=== PATIENT | female | born 1945 | race Caucasian/White ===

== ENCOUNTER 2017-07-30 18:46 | Emergency (ER) | payer MEDICARE, SELFPAY ==
[2017-07-30 18:49] VITALS: BP 177/82; PULSE 66; RESP 14; TEMP 36.4; O2SAT 100; BMI 23.0
--- NOTE | 2017-07-30 18:58 | ED.GENADULT ---
HPI - General Adult <BARRIE Collado - Last Filed: 07/30/17 22:54> General Chief complaint: Hypertension Stated complaint: Thinks she had an aneurysm Time Seen by Provider: 07/30/17 18:57 History of Present Illness HPI narrative: Patient was seen by dentist and was informed that she had elevated blood pressure reading a few days ago. Patient denies having history of hypertension. Patient also reports of having headache for the last several days. As well she denies that it was sudden onset headache that she states she normally has a low grade headache she reports that the headache is a little bit worse than normal today. She denies any shortness of breath no chest pain. She denies any neurological deficits. She was able to ambulate into the emergency room. She reports headache to the top of her head. She denies any stressors. She does state that holding still helps relieve headache. Primary care provider wanted her to present to the emergency room today to rule out head bleed. She denies any other concerns or complaints. Related Data Home Medications Medication Instructions Recorded Confirmed lutein 20 mg PO Q DAY #0 04/15/16 07/30/17 ascorbic acid (vitamin C) [Vitamin 1 g PO QD-BID 07/30/17 07/30/17 C] cholecalciferol (vitamin D3) 2,000 unit PO DAILY 07/30/17 07/30/17 [Vitamin D3] levothyroxine [Synthroid] 62.5 mg PO SEE INSTRUCTIONS 07/30/17 07/30/17 magnesium 200 mg PO DAILY 07/30/17 07/30/17 omega 7-nig-dkn-fish oil [Fish Oil] 1,000 mg PO QD-BID 07/30/17 07/30/17 Allergies Allergy/AdvReac Type Severity Reaction Status Date / Time penicillin G [PENICILLIN G] Allergy Unknown FAMILY HX Verified 07/30/17 18:54 SEVERE REACTION, FATHER AND DAUGHTER Review of Systems <BARRIE Collado - Last Filed: 07/30/17 22:54> Constitutional Reports headache(s) Eyes Denies change in vision, Denies eye discharge, Denies irritation and Denies loss of vision ENT Ears, Nose, Mouth, and Throat: Reports headache(s) Cardiovascular Denies chest pain, Denies dyspnea and Reports other Respiratory Denies dyspnea Gastrointestinal Gastrointestinal: Denies abdominal pain, Denies change in bowel habits, Denies diarrhea, Denies nausea and Denies vomiting Genitourinary Denies hematuria, Denies flank pain, Denies urinary incontinence and Denies urinary urgency Integumentary/Breasts Denies pruritus, Denies erythema, Denies rash and Denies wounds Neurologic Reports headache(s) and Denies loss of vision Exam <BARRIE Collado - Last Filed: 07/30/17 22:54> Initial Vital Signs Initial Vital Signs: Vital Signs Temperature 97.5 F L 07/30/17 18:49 Pulse Rate 66 07/30/17 18:49 Respiratory Rate 14 07/30/17 18:49 Blood Pressure 177/82 H 07/30/17 18:49 Pulse Oximetry 100 07/30/17 18:49 Neuro General: alert, awake, oriented x3, gait normal, moves all extremities and CN's II-XI intact bilaterally Cranial Nerves: accommodation normal, tongue midline, hearing normal, able to rotate head bilaterally and able to elevate shoulders bilaterally Cognition: normal cognition Speech: speech normal Motor: strength 5/5 throughout Sensory Exam: no sensory deficits noted <Los Rajput MD - Last Filed: 07/31/17 03:30> Initial Vital Signs Initial Vital Signs: Vital Signs Temperature 97.5 F L 07/30/17 18:49 Pulse Rate 66 07/30/17 18:49 Respiratory Rate 14 07/30/17 18:49 Blood Pressure 177/82 H 07/30/17 18:49 Pulse Oximetry 100 07/30/17 18:49 Course <BARRIE Collado - Last Filed: 07/30/17 22:54> Orders Ordered: ED Orders 07/30/17 19:15 Complete Blood Count AUTO DIFF Stat Comprehensive Metabolic Panel Stat 07/30/17 19:22 CT angio head Stat Discontinued Medications Acetaminophen (Tylenol) 650 mg PO NOW ONE Stop: 07/30/17 19:11 Last Admin: 07/30/17 19:30 Dose: 650 mg Vital Signs - 8 hr 07/30/17 20:20 07/30/17 21:49 07/30/17 22:58 Pulse Rate 60 60 65 Respiratory Rate 14 17 15 Blood Pressure [Right Arm] 145/61 H 155/92 H 152/92 H Pulse Oximetry 99 100 100 <Los Rajput MD - Last Filed: 07/31/17 03:30> Orders Ordered: ED Orders 07/30/17 19:15 Complete Blood Count AUTO DIFF Stat Comprehensive Metabolic Panel Stat 07/30/17 19:22 CT angio head Stat Discontinued Medications Acetaminophen (Tylenol) 650 mg PO NOW ONE Stop: 07/30/17 19:11 Last Admin: 07/30/17 19:30 Dose: 650 mg Vital Signs - 8 hr 07/30/17 20:20 07/30/17 21:49 07/30/17 22:58 Pulse Rate 60 60 65 Respiratory Rate 14 17 15 Blood Pressure [Right Arm] 145/61 H 155/92 H 152/92 H Pulse Oximetry 99 100 100 Medical Decision Making <BARRIE Collado - Last Filed: 07/30/17 22:54> MDM Narrative Medical decision making narrative: CBC and Chem panel were obtained and were unremarkable. CTA of head was obtained and was negative for any acute findings. She is recommended to follow up with primary care provider for further evaluation and treatment of a possible hypertension. Use [id number] Tylenol or Motrin as needed for any discomfort or headache. Return emergency room for any worsening symptoms. Lab Data Result diagrams: 07/30/17 19:15 07/30/17 19:15 Lab Results 07/30/17 07/30/17 Range/Units 19:15 19:15 WBC 6.7 (4.5-11.0) X10^3/uL RBC 4.74 (4.0-5.2) X10^6/uL Hgb 14.3 (12.0-16.0) g/dL Hct 42.4 (36-46) % MCV 89.4 (80-100) fL MCH 30.2 (26-34) PG MCHC 33.8 (30-36) % RDW 14.0 (11.6-14.8) % Plt Count 170 (150-400) X10^3/uL Neut % (Auto) 50.7 (50-75) % Lymph % (Auto) 37.4 (25-40) % [place] % (Auto) 9.6 (3-14) % Eos % (Auto) 1.8 L (2-4) % Baso % (Auto) 0.5 (0-2) % Neut # (Auto) 3400 (9736-0713) /uL Sodium 141 (137-145) mmol/L Potassium 4.7 (3.4-5.1) mmol/L Chloride 103.0 (98-107) mmol/L Carbon Dioxide 30.0 (22-32) mmol/L BUN 29.0 H (7-17) mg/dL Creatinine 0.80 (0.52-1.04) mg/dL Estimated GFR > 60.0 (>60) mL/min BUN/Creatinine Ratio 36.3 H (6-22) Glucose 89 (80-110) mg/dL Calcium 9.6 (8.4-10.2) mg/dL Total Bilirubin 0.6 (0.2-1.3) mg/dL AST 47 H (14-36) IU/L ALT 36 (9-52) IU/L Alkaline Phosphatase 95 (38-126) U/L Total Protein 7.6 (6.3-8.2) g/dL Albumin 4.3 (3.5-5.0) g/dL Globulin 3.3 (1.7-4.1) g/dL Albumin/Globulin Ratio 1.3 (1.0-2.8) <Los Rajput MD - Last Filed: 07/31/17 03:30> MDM Narrative Medical decision making narrative: The PA/DRESSAGE JUDGE functioned independently for the care of this pt, I was available, but not asked to participate in care. I am unable to determine appropriateness of management without personally examining the pt. Lab Data Lab Results 07/30/17 07/30/17 Range/Units 19:15 19:15 WBC 6.7 (4.5-11.0) X10^3/uL RBC 4.74 (4.0-5.2) X10^6/uL Hgb 14.3 (12.0-16.0) g/dL Hct 42.4 (36-46) % MCV 89.4 (80-100) fL MCH 30.2 (26-34) PG MCHC 33.8 (30-36) % RDW 14.0 (11.6-14.8) % Plt Count 170 (150-400) X10^3/uL Neut % (Auto) 50.7 (50-75) % Lymph % (Auto) 37.4 (25-40) % [place] % (Auto) 9.6 (3-14) % Eos % (Auto) 1.8 L (2-4) % Baso % (Auto) 0.5 (0-2) % Neut # (Auto) 3400 (6899-5563) /uL Sodium 141 (137-145) mmol/L Potassium 4.7 (3.4-5.1) mmol/L Chloride 103.0 (98-107) mmol/L Carbon Dioxide 30.0 (22-32) mmol/L BUN 29.0 H (7-17) mg/dL Creatinine 0.80 (0.52-1.04) mg/dL Estimated GFR > 60.0 (>60) mL/min BUN/Creatinine Ratio 36.3 H (6-22) Glucose 89 (80-110) mg/dL Calcium 9.6 (8.4-10.2) mg/dL Total Bilirubin 0.6 (0.2-1.3) mg/dL AST 47 H (14-36) IU/L ALT 36 (9-52) IU/L Alkaline Phosphatase 95 (38-126) U/L Total Protein 7.6 (6.3-8.2) g/dL Albumin 4.3 (3.5-5.0) g/dL Globulin 3.3 (1.7-4.1) g/dL Albumin/Globulin Ratio 1.3 (1.0-2.8) Discharge Plan Departure Patient Disposition: Home, Self-Care Clinical Impression: Headache Discharge Date/Time: 07/30/17 23:04 Interventions: ED Discharge Assessment Last Done: 07/30/17 23:04 Activity Restrictions/Additional Instructions: Laboratory results were unremarkable. CT of the head was negative for any acute findings. Signs and symptoms presents as acute on chronic headache. Use [id number] Tylenol or Motrin as needed for any discomfort. Follow up with the primary care provider for further evaluation and treatment of possible hypertension. For any worsening symptoms return to the emergency room. Prescriptions: No Action lutein 20 MG tablet 20 mg PO Q DAY Qty: 0 RF: 0 levothyroxine [Synthroid] 125 MCG tablet 62.5 mg PO SEE INSTRUCTIONS RF: 0 ascorbic acid (vitamin C) [Vitamin C] 1,000 mg Tablet 1 g PO QD-BID RF: 0 magnesium 200 mg Tablet 200 mg PO DAILY RF: 0 cholecalciferol (vitamin D3) [Vitamin D3] 2,000 unit Capsule 2,000 unit PO DAILY RF: 0 omega 5-gpu-pgo-fish oil [Fish Oil] 1,000 mg (120 mg-180 mg) Capsule 1,000 mg PO QD-BID RF: 0
--- NOTE | 2017-07-30 19:20 | ED_ITS ---
HPI - General Adult <BARRIE Collado - Last Filed: 07/30/17 22:54> General Chief complaint: Hypertension Stated complaint: Thinks she had an aneurysm Time Seen by Provider: 07/30/17 18:57 History of Present Illness HPI narrative: Patient was seen by dentist and was informed that she had elevated blood pressure reading a few days ago. Patient denies having history of hypertension. Patient also reports of having headache for the last several days. As well she denies that it was sudden onset headache that she states she normally has a low grade headache she reports that the headache is a little bit worse than normal today. She denies any shortness of breath no chest pain. She denies any neurological deficits. She was able to ambulate into the emergency room. She reports headache to the top of her head. She denies any stressors. She does state that holding still helps relieve headache. Primary care provider wanted her to present to the emergency room today to rule out head bleed. She denies any other concerns or complaints. Related Data Home Medications Medication Instructions Recorded Confirmed lutein 20 mg PO Q DAY #0 04/15/16 07/30/17 ascorbic acid (vitamin C) [Vitamin 1 g PO QD-BID 07/30/17 07/30/17 C] cholecalciferol (vitamin D3) 2,000 unit PO DAILY 07/30/17 07/30/17 [Vitamin D3] levothyroxine [Synthroid] 62.5 mg PO SEE INSTRUCTIONS 07/30/17 07/30/17 magnesium 200 mg PO DAILY 07/30/17 07/30/17 omega 8-nac-rjn-fish oil [Fish Oil] 1,000 mg PO QD-BID 07/30/17 07/30/17 Allergies Allergy/AdvReac Type Severity Reaction Status Date / Time penicillin G [PENICILLIN G] Allergy Unknown FAMILY HX Verified 07/30/17 18:54 SEVERE REACTION, FATHER AND DAUGHTER Review of Systems <BARRIE Collado - Last Filed: 07/30/17 22:54> Constitutional Reports headache(s) Eyes Denies change in vision, Denies eye discharge, Denies irritation and Denies loss of vision ENT Ears, Nose, Mouth, and Throat: Reports headache(s) Cardiovascular Denies chest pain, Denies dyspnea and Reports other Respiratory Denies dyspnea Gastrointestinal Gastrointestinal: Denies abdominal pain, Denies change in bowel habits, Denies diarrhea, Denies nausea and Denies vomiting Genitourinary Denies hematuria, Denies flank pain, Denies urinary incontinence and Denies urinary urgency Integumentary/Breasts Denies pruritus, Denies erythema, Denies rash and Denies wounds Neurologic Reports headache(s) and Denies loss of vision Exam <BARRIE Collado - Last Filed: 07/30/17 22:54> Initial Vital Signs Initial Vital Signs: Vital Signs Temperature 97.5 F L 07/30/17 18:49 Pulse Rate 66 07/30/17 18:49 Respiratory Rate 14 07/30/17 18:49 Blood Pressure 177/82 H 07/30/17 18:49 Pulse Oximetry 100 07/30/17 18:49 Neuro General: alert, awake, oriented x3, gait normal, moves all extremities and CN's II-XI intact bilaterally Cranial Nerves: accommodation normal, tongue midline, hearing normal, able to rotate head bilaterally and able to elevate shoulders bilaterally Cognition: normal cognition Speech: speech normal Motor: strength 5/5 throughout Sensory Exam: no sensory deficits noted <Los Rajput MD - Last Filed: 07/31/17 03:30> Initial Vital Signs Initial Vital Signs: Vital Signs Temperature 97.5 F L 07/30/17 18:49 Pulse Rate 66 07/30/17 18:49 Respiratory Rate 14 07/30/17 18:49 Blood Pressure 177/82 H 07/30/17 18:49 Pulse Oximetry 100 07/30/17 18:49 Course <BARRIE Collado - Last Filed: 07/30/17 22:54> Orders Ordered: ED Orders 07/30/17 19:15 Complete Blood Count AUTO DIFF Stat Comprehensive Metabolic Panel Stat 07/30/17 19:22 CT angio head Stat Discontinued Medications Acetaminophen (Tylenol) 650 mg PO NOW ONE Stop: 07/30/17 19:11 Last Admin: 07/30/17 19:30 Dose: 650 mg Vital Signs - 8 hr 07/30/17 20:20 07/30/17 21:49 07/30/17 22:58 Pulse Rate 60 60 65 Respiratory Rate 14 17 15 Blood Pressure [Right Arm] 145/61 H 155/92 H 152/92 H Pulse Oximetry 99 100 100 <Los Rajput MD - Last Filed: 07/31/17 03:30> Orders Ordered: ED Orders 07/30/17 19:15 Complete Blood Count AUTO DIFF Stat Comprehensive Metabolic Panel Stat 07/30/17 19:22 CT angio head Stat Discontinued Medications Acetaminophen (Tylenol) 650 mg PO NOW ONE Stop: 07/30/17 19:11 Last Admin: 07/30/17 19:30 Dose: 650 mg Vital Signs - 8 hr 07/30/17 20:20 07/30/17 21:49 07/30/17 22:58 Pulse Rate 60 60 65 Respiratory Rate 14 17 15 Blood Pressure [Right Arm] 145/61 H 155/92 H 152/92 H Pulse Oximetry 99 100 100 Medical Decision Making <BARRIE Collado - Last Filed: 07/30/17 22:54> MDM Narrative Medical decision making narrative: CBC and Chem panel were obtained and were unremarkable. CTA of head was obtained and was negative for any acute findings. She is recommended to follow up with primary care provider for further evaluation and treatment of a possible hypertension. Use [id number] Tylenol or Motrin as needed for any discomfort or headache. Return emergency room for any worsening symptoms. Lab Data Result diagrams: 07/30/17 19:15 07/30/17 19:15 Lab Results 07/30/17 07/30/17 Range/Units 19:15 19:15 WBC 6.7 (4.5-11.0) X10^3/uL RBC 4.74 (4.0-5.2) X10^6/uL Hgb 14.3 (12.0-16.0) g/dL Hct 42.4 (36-46) % MCV 89.4 (80-100) fL MCH 30.2 (26-34) PG MCHC 33.8 (30-36) % RDW 14.0 (11.6-14.8) % Plt Count 170 (150-400) X10^3/uL Neut % (Auto) 50.7 (50-75) % Lymph % (Auto) 37.4 (25-40) % [place] % (Auto) 9.6 (3-14) % Eos % (Auto) 1.8 L (2-4) % Baso % (Auto) 0.5 (0-2) % Neut # (Auto) 3400 (5769-6238) /uL Sodium 141 (137-145) mmol/L Potassium 4.7 (3.4-5.1) mmol/L Chloride 103.0 (98-107) mmol/L Carbon Dioxide 30.0 (22-32) mmol/L BUN 29.0 H (7-17) mg/dL Creatinine 0.80 (0.52-1.04) mg/dL Estimated GFR > 60.0 (>60) mL/min BUN/Creatinine Ratio 36.3 H (6-22) Glucose 89 (80-110) mg/dL Calcium 9.6 (8.4-10.2) mg/dL Total Bilirubin 0.6 (0.2-1.3) mg/dL AST 47 H (14-36) IU/L ALT 36 (9-52) IU/L Alkaline Phosphatase 95 (38-126) U/L Total Protein 7.6 (6.3-8.2) g/dL Albumin 4.3 (3.5-5.0) g/dL Globulin 3.3 (1.7-4.1) g/dL Albumin/Globulin Ratio 1.3 (1.0-2.8) <Los Rajput MD - Last Filed: 07/31/17 03:30> MDM Narrative Medical decision making narrative: The PA/TOLL GATE TENDER functioned independently for the care of this pt, I was available, but not asked to participate in care. I am unable to determine appropriateness of management without personally examining the pt. Lab Data Lab Results 07/30/17 07/30/17 Range/Units 19:15 19:15 WBC 6.7 (4.5-11.0) X10^3/uL RBC 4.74 (4.0-5.2) X10^6/uL Hgb 14.3 (12.0-16.0) g/dL Hct 42.4 (36-46) % MCV 89.4 (80-100) fL MCH 30.2 (26-34) PG MCHC 33.8 (30-36) % RDW 14.0 (11.6-14.8) % Plt Count 170 (150-400) X10^3/uL Neut % (Auto) 50.7 (50-75) % Lymph % (Auto) 37.4 (25-40) % [place] % (Auto) 9.6 (3-14) % Eos % (Auto) 1.8 L (2-4) % Baso % (Auto) 0.5 (0-2) % Neut # (Auto) 3400 (9635-2747) /uL Sodium 141 (137-145) mmol/L Potassium 4.7 (3.4-5.1) mmol/L Chloride 103.0 (98-107) mmol/L Carbon Dioxide 30.0 (22-32) mmol/L BUN 29.0 H (7-17) mg/dL Creatinine 0.80 (0.52-1.04) mg/dL Estimated GFR > 60.0 (>60) mL/min BUN/Creatinine Ratio 36.3 H (6-22) Glucose 89 (80-110) mg/dL Calcium 9.6 (8.4-10.2) mg/dL Total Bilirubin 0.6 (0.2-1.3) mg/dL AST 47 H (14-36) IU/L ALT 36 (9-52) IU/L Alkaline Phosphatase 95 (38-126) U/L Total Protein 7.6 (6.3-8.2) g/dL Albumin 4.3 (3.5-5.0) g/dL Globulin 3.3 (1.7-4.1) g/dL Albumin/Globulin Ratio 1.3 (1.0-2.8) Discharge Plan Departure Patient Disposition: Home, Self-Care Clinical Impression: Headache Discharge Date/Time: 07/30/17 23:04 Interventions: ED Discharge Assessment Last Done: 07/30/17 23:04 Activity Restrictions/Additional Instructions: Laboratory results were unremarkable. CT of the head was negative for any acute findings. Signs and symptoms presents as acute on chronic headache. Use dyxl-uau-hzuqlej Tylenol or Motrin as needed for any discomfort. Follow up with the primary care provider for further evaluation and treatment of possible hypertension. For any worsening symptoms return to the emergency room. Prescriptions: No Action lutein 20 MG tablet 20 mg PO Q DAY Qty: 0 RF: 0 levothyroxine [Synthroid] 125 MCG tablet 62.5 mg PO SEE INSTRUCTIONS RF: 0 ascorbic acid (vitamin C) [Vitamin C] 1,000 mg Tablet 1 g PO QD-BID RF: 0 magnesium 200 mg Tablet 200 mg PO DAILY RF: 0 cholecalciferol (vitamin D3) [Vitamin D3] 2,000 unit Capsule 2,000 unit PO DAILY RF: 0 omega 2-spx-klh-fish oil [Fish Oil] 1,000 mg (120 mg-180 mg) Capsule 1,000 mg PO QD-BID RF: 0
--- NOTE | 2017-07-30 19:22 | DI.CT.S_ITS ---
PROCEDURE: CT ANGIO HEAD INDICATIONS: headache elevated bp, hx of anuerism TECHNIQUE: Precontrast 4.5 mm thick angled axial sections acquired from the foramen magnum to the vertex. After the administration of intravenous contrast, 1 mm thick sections acquired through the [place]. Postcontrast 4.5 mm thick sections then re-acquired from the foramen magnum to the vertex. 10 mm thick bcgumce-gtbkdqlsw-iwzdeductl (MIP) reformats were acquired of the central intracranial vasculature. For radiation dose reduction, the following was used: automated exposure control, adjustment of mA and/or kV according to patient size. COMPARISON: None. FINDINGS: Image quality: Excellent. Anterior circulation: Postsurgical changes related to aneurysm clipping. The visualized intracranial internal carotid arteries are normal in size and flow. The flow within the paired anterior cerebral arteries is normal and symmetric. The flow within the middle cerebral arteries is normal and symmetric. The anterior communicating artery is seen. No aneurysms are seen. Posterior circulation: Dominant left vertebral artery . Distal right vertebral artery not seen. Normal appearing basilar artery. Flow within the posterior cerebral arteries is normal and symmetric. No aneurysms are seen. CSF spaces: Ventricles are normal in size and shape. Basal cisterns are patent. No extra-axial fluid collections. Brain: No midline shift. There is chronic age-related global volume loss. There is superimposed left frontal encephalomalacia, chronic. Suprasellar aneurysm clip is noted. No intracranial bleeds or masses. [place]-white matter interface appears intact. Skull and face: Calvarium and facial bones appear intact, without suspicious lesions. No frontal postsurgical craniotomy changes Sinuses: Visualized sinuses and mastoids are clear. IMPRESSION: Status post suprasellar aneurysm clip placement. No recurrent aneurysm, or occlusion. Chronic left frontal encephalomalacia. No acute intracranial abnormality. Dictated by: Rishi Cabrera M.D. on 07/31/2017 at 7:17 Approved by: Rishi Cabrera M.D. on 07/31/2017 at 9:08
[2017-07-30 19:27] LABS: Add Manual Diff / Slide Review NO; Basophils Percent Auto 0.5 % (0-2); Eosinophils Percent Auto 1.8 % (2-4); Hematocrit 42.4 % (36-46); Hemoglobin 14.3 g/dL (12.0-16.0); Lymphocytes Percent Auto 37.4 % (25-40); Mean Corpuscular HGB Conc 33.8 % (30-36); Mean Corpuscular Hemoglobin 30.2 PG (26-34); Mean Corpuscular Volume 89.4 fL (80-100); Monocytes Percent Auto 9.6 % (3-14); Neutrophils Absolute Auto 3400 /uL (3000-5900); Neutrophils Percent Auto 50.7 % (50-75); Platelet Count 170 X10^3/uL (150-400); Red Blood Cell Count 4.74 X10^6/uL (4.0-5.2); White Blood Cell Count 6.7 X10^3/uL (4.5-11.0)
[2017-07-30] MEDS: ACETAMINOPHEN 325 MG TABLET 650 MG PO (19:30)
[2017-07-30 20:15] LABS: Alanine Aminotransferase 36 IU/L (9-52); Albumin 4.3 g/dL (3.5-5.0); Albumin Globulin Ratio 1.3 (1.0-2.8); Alkaline Phosphatase 95 U/L (38-126); Aspartate Aminotransferase 47 IU/L (14-36); BUN Creatinine Ratio 36.3 (6-22); Bilirubin Total 0.6 mg/dL (0.2-1.3); Calcium 9.6 mg/dL (8.4-10.2); Estimated Glomerular Filt Rate > 60.0 mL/min (>60); Globulin 3.3 g/dL (1.7-4.1); Glucose 89 mg/dL (80-110); Potassium 4.7 mmol/L (3.4-5.1); Sodium 141 mmol/L (137-145); Total Protein 7.6 g/dL (6.3-8.2)
[2017-07-30 20:16] LABS: HEMOLYSIS 61 (0-50)
[2017-07-30 20:20] VITALS: BP 145/61; PULSE 60; RESP 14; O2SAT 99
[2017-07-30 21:49] VITALS: BP 155/92; PULSE 60; RESP 17; O2SAT 100
[2017-07-30 22:58] VITALS: BP 152/92; PULSE 65; RESP 15; O2SAT 100
== END 2017-07-30 23:04 | disposition home or self-care (01) ==
PROVIDERS: Emergency Provider Nurse Practitioner Family; PCP Family Medicine
DX: R51 Headache (principal)
CPT/HCPCS: 36591; 70496; 80053; 85025; 99283; 99284; Q9967

== ENCOUNTER 2017-07-30 19:11 | Emergency (ER) | payer MEDICARE, SELFPAY ==
--- NOTE | 2017-07-30 14:52 | PC.NURSE ---
Dr mancia phoned report, pt presented with headache, and also has elevated bp of 180/100. Hx of brain anyresum with clipping. [place] [id number]
== END 2017-07-30 19:15 | disposition home or self-care (01) ==
LOC: ED 19:14
DX: R51 Headache (principal)

== ENCOUNTER → 2023-08-20 08:03 | Outpatient (CLI) | payer MEDICARE, SELFPAY ==
--- NOTE | 2023-08-20 08:06 | DI.MRI.S_ITS ---
PROCEDURE: MR LUMBAR SPINE WO CON INDICATIONS: Spinal stenosis, lumbar region with neurogenic cla TECHNIQUE: Noncontrast sagittal T1 spin echo and T2 fast echo, sagittal STIR, and T2 fast spin echo through the lumbar spine. In cases with scoliosis, additional coronal T2 fast spin echo may be performed. COMPARISON: None. FINDINGS: Image quality: Excellent. Alignment and Curvature: There is grade I L4-5 anterolisthesis. There is otherwise normal bony alignment. Bone Marrow: Marrow is of normal overall signal. An intraosseous hemangioma is present at L1 and L4. No acute vertebral body compression fractures. A chronic appearing compression deformity is present at the left superior L2 endplate. Spinal Cord: Conus medullaris terminates at the L1 level. Visualized cord demonstrates normal signal and size. Paraspinous Soft Tissues: No paravertebral masses. A T2 hyperintense \, probable cyst is present in the lower pole of the right kidney which is incompletely characterized. T12-L1: Mild disc bulge. No canal stenosis. Mild right foraminal stenosis. No left foraminal stenosis L1-L2: Mild disc desiccation and height loss. Left superior L2 endplate compression deformity. Broad-based disc bulge. Mild facet ligamentum flavum hypertrophy. No canal stenosis. Mild bilateral foraminal stenosis. L2-L3: Moderate disc desiccation and height loss. Superior L3 endplate Schmorl's node. Broad-based disc bulge. Moderate facet ligamentum flavum hypertrophy. Mild canal stenosis. Moderate right and mild left foraminal stenosis. L3-L4: Moderate disc desiccation and height loss. Severe facet and ligamentum flavum hypertrophy. No canal stenosis. Moderate bilateral foraminal stenosis. L4-L5: Trace anterolisthesis. Moderate disc desiccation and height loss. Moderate facet and ligamentum flavum hypertrophy. No canal stenosis. Mild bilateral foraminal stenosis. L5-S1: Mild disc desiccation and height loss. No canal stenosis. Mild facet sclerosis. No foraminal stenosis. IMPRESSION: 1. Compression deformity at the superior left L2 endplate. No edema is associated with this finding suggesting a chronic process. 2. Multilevel disc desiccation and height loss with broad-based disc bulges and facet and ligamentum flavum hypertrophy and resultant mild canal stenosis at L2-3. No other canal stenosis of the lumbar spine. 3. Moderate right foraminal stenosis at L2-3 and moderate bilateral foraminal stenosis at L3-4. Dictated by: Dawna Dee M.D. on 08/20/2023 at 10:36 Approved by: Dawna Dee M.D. on 08/20/2023 at 10:44
== END ==
PROVIDERS: PCP Family Medicine; Referring Provider Orthopaedic Surgery Orthopaedic Surgery of the Spine; Visit Provider Orthopaedic Surgery Orthopaedic Surgery of the Spine
DX: M48.062 Spinal stenosis, lumbar region with neurogenic claudication (principal); M47.816 Spondylosis without myelopathy or radiculopathy, lumbar region; M47.26 Other spondylosis with radiculopathy, lumbar region; M43.8X6 Other specified deforming dorsopathies, lumbar region
CPT/HCPCS: 72148

== ENCOUNTER → 2023-09-10 14:39 | Outpatient (CLI) | payer MEDICARE, SELFPAY ==
--- NOTE | 2023-09-10 14:41 | DI.CT.S_ITS ---
PROCEDURE: CT LUMBAR SPINE WO CON INDICATIONS: SPINAL STENOSIS,LUMBAR REGION W NEUROGENIC CLAUDIC TECHNIQUE: Noncontrast 3 mm thick sections acquired from the T12 level to the sacrum. Sagittal and coronal reformats were constructed. For radiation dose reduction, the following was used: automated exposure control. COMPARISON: [facility], MR, MR LUMBAR SPINE WO CON, 08/20/2023, 8:42. FINDINGS: Image quality: Excellent. Bones: There is no visualized fracture or dislocation. No suspicious osseous lesions. Trace anterolisthesis is present at L5-S1. Scattered small anterior osteophytes are present most severe at L2 and L3. Multilevel disc bulges are present throughout the lumbar spine. Mild spinal stenosis is present at L2-3. Multilevel foraminal narrowing is present mild bilateral L1-2, moderate right mild left L2-3, moderate bilateral L3-4, mild bilateral L4-L5. Facet and ligamentum flavum hypertrophy are present. Soft tissues: No retroperitoneal masses or hematomas. Visualized aorta is normal in caliber. IMPRESSION: Multilevel disc bulges. Mild spinal stenosis most notable at L2-3 secondary to disc bulge with contributing effect of facet/ligamentum flavum arthropathy. Multilevel foraminal narrowing is present most prominent at right L2-3 secondary to facet arthropathy. Dictated by: Kerri Farris M.D. on 09/10/2023 at 16:49 Approved by: Kerri Farris M.D. on 09/10/2023 at 16:51
== END ==
PROVIDERS: PCP Family Medicine; Referring Provider Orthopaedic Surgery Orthopaedic Surgery of the Spine; Visit Provider Orthopaedic Surgery Orthopaedic Surgery of the Spine
DX: M48.062 Spinal stenosis, lumbar region with neurogenic claudication (principal); M51.36 Other intervertebral disc degeneration, lumbar region
CPT/HCPCS: 72131

== ENCOUNTER 2023-09-21 10:23 | Inpatient (IN) | payer MEDICARE, SELFPAY ==
[2023-09-15 13:52] VITALS: BMI 23.6
[2023-09-21] VITALS (17 sets, daily range): BP systolic 84–152; BP diastolic 44–86; PULSE 60–80; RESP 11–18; TEMP 36.1–36.8; O2SAT 93–100; BMI 23.6
--- NOTE | 2023-09-21 | DI.RAD.S_ITS ---
PROCEDURE: XR LUMBAR SPINE 2-3V INDICATIONS: L3-4 L4-5 TLIF TECHNIQUE: 3 intraoperative fluoroscopic views of the lumbar spine were acquired. COMPARISON: None. FINDINGS: Intraoperative fluoroscopic images of lower lumbar spine shows posterior fusion of L3-4 and L4-5 levels with intervertebral spacer placement. IMPRESSION: Fluoro guidance was provided intraoperatively for posterior fusion at L3-4 and L4-5 levels. Dictated by: Patrick Cuellar M.D. on 09/21/2023 at 16:17 Approved by: Patrick Cuellar M.D. on 09/21/2023 at 16:21
[2023-09-21] MEDS: LACTATED RINGERS 1,000 ML 42 ML IV ×2 (11:28→13:31)
--- NOTE | 2023-09-21 11:36 | PM.PREOP ---
Pre-operative Note Interval Note History & Physical reviewed/Exam performed by Physician: Yes Changes to H&P: No
[2023-09-21] MEDS: FAMOTIDINE 20 MG/2 ML VIAL IV (11:48)
[2023-09-21] MEDS: PREGABALIN 75 MG CAPSULE PO (11:48)
[2023-09-21] MEDS: ACETAMINOPHEN 325 MG TABLET 975 MG PO (11:48)
[2023-09-21] MEDS: CEFAZOLIN 2 GM/100 ML PREMIX 100 ML IV ×2 (12:15→20:59)
--- NOTE | 2023-09-21 12:34 | SUR.OPER ---
Prone on spine table, head in foam head support, padded chest and pelvic supports, gel pad at knees, lower legs supported by pillows; nipples, genitalia and toes free of pressure, arms secured on foam padded arm boards at <90 degrees abduction. Tape over blanket at thigh secured to table.
[2023-09-21] MEDS: BUPIVACAINE LIPOSOME 266 MG/20 ML VIAL INJ (13:05)
[2023-09-21] MEDS: BUPIVACAINE 0.25% (PF) 60 ML, EPINEPHrine 0.15 MG INJ (13:05)
--- NOTE | 2023-09-21 14:58 | P.OP_ITS ---
Operative Date/Time/Diagnoses Date of procedure: 09/21/23 Time of procedure: 12:30 Pre-op diagnosis: 1. 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 L4-5 spondylolisthesis 3. Lumbar foramen stenosis Post-op diagnosis: same Procedure & Clinicians Procedure: 1. L3-4, L4-5 Postero-lateral and posterior interbody fusion 2. L3-4, L4-5 interbody cage placement. 3.L3-4, L4-5 decompressive laminectomy with bilateral facetecomies 4. L3-4, L4-5 Posterior segmental instrumentation 5. [place] of bone marrow from iliac crest 6. Utilization of microsurgical technique and operating microscope 7. Utilization of robotic assisted navigation Same procedure as scheduled: Yes Indications: Patient has been having chronic back pain and worsening lumbar radiculopathy. Patient has lumbar spondylolisthesis and foraminal stenosis correlating with her symptoms. Patient failed multiple conservative management with worsening pain weakness and numbness in her lower extremity. Patient has been having difficulty performing activity of daily living. After discussing risks benefits of treatment options, patient elected proceed with surgery. Surgeon: Dayron Ford Histologist Technologist: Sulema Graf Click Yes if Unassisted: No Anesthesia Type: General Operative Notes Closure Type: primary Specimen(s): none sent Prosthetic devices, grafts, tissues, transplants, or devices: Globus CREO MIS Screws, Rise cages Applied: catheter Estimated Blood Loss (mL): 150 Blood products transfused: none Procedure in detail: Patient was seen in the preoperative area. Risks and benefits of the surgery was discussed with the patient. Informed consent was obtained from the patient and placed in the chart. Surgical site was marked. Patient was taken to the operative room. General anesthesia was administered. Prophylactic antibiotic was given to the patient less than 30 min before the incision was made. Patient was placed into a prone position on the Ryan table. Patient's back was then prepped and draped in the sterile fashion. Time-out was performed at this time. After patient was prepped and draped, patient's PSIS was palpated and marked bilaterally. Small 1 cm incision was made over the PSIS for placement of the reference probes. Two trocar was placed into the PSIS 1 on each side. The reference probe was attached to the trocar of the reference apparatus. At this time the C-arm imaging was used to confirm AP and lateral of L3, L4-L5 vertebrae and merged the C-arm imaging using the [employer] robotic navigation system with the CT of the lumbar spine. After successful merging was completed and confirmed, skin marker was used to soledad out the skin incision using the [employer] robotic arm. Bilateral incision was made at this time. Pre templated trajectory was used and guided using the [employer] robotic navigation system for bilateral L3 L4, L5 pedicle screw placement. This was done by using the robotic arm to guide the high-speed bur to make a cortical entry point. Next a drill was placed also using the robotic arm and guided using the navigation system drilling partially through bilateral L3, L4, L5 pedicles. Next L3, L4, L5 pedicle screws it was pre templated and measured was placed onto the power test car driver and inserted into the pedicles bilaterally. After all 6 screws were placed C-arm imaging was taken of both AP and lateral to confirm the placement. Excellent placement of the screws were confirmed and a matched precisely with the pre planned screw placement using the navigation system. MARs retractor was inserted using [employer] guidence. Globus MARS retractors was placed inside the incision and docked onto the L3, L4 lamina. Using microsurgical technique and operating microscope, a L3, L4 laminectomy and L3-4, L4-5 facetectomy was performed using a [place] rongeur. The laminectomy and facetectomy was performed in order to decompress patient's cauda equina as well as the nerve roots exiting at the L3-4, L4-5 level. Patient was found have severe lateral recess and neural foramen stenosis which was fully decompressed after the laminectomy facetectomy. More than 75% of the facets were removed during the process of decompression rendering L3-4, L4-5 level grossly unstable and required a fusion procedure at the same time. The disc space at L3-4, L4-5 was identified, and a total diskectomy was performed at L3-4, L4-5 level. The endplates were decorticated using a rasp and shaver. The total diskectomy and decortication was performed at L3-4, L4-5 level in order to to accomplish a L3- 4, L4-5 fusion. The local bone from the laminectomy and facetectomy was saved for local bone grafting. After the total diskectomy and decortication was completed, Viacel bone graft material was combined with local bone that was harvested earlier. At this time, a separate skin is incision was made over the iliac crest. A Jamshidi needle was inserted into the iliac crest through a separate skin incision. 5 cc of bone marrow aspiration was obtained through the separate skin incision using a Jamshidi needle from the iliac crest. The bone marrow aspiration was combined with local bone and the [employer] bone grafting material. The bone grafting material was placed into the L3-4, L4-5 interbody space along with expandable cages. One cage each was inserted into the L3-4 L4-5 interbody space along with bone graft material. The cage was expanded to its maximum height using the torque limiting screwdriver. The disc preparation as well as the cage insertion were also performed under navigation guidance. After the cage was placed, AP and lateral C-arm imaging was taken to confirm placement of the cage and excellent position was confirmed. Globus MARS retractor was inserted and docked onto the L3-4, L4-5 posterolateral gutter on the right side. Using the power drill, posterior-lateral decortication was performed at L3-4, L4-5 level until bleeding cortical bone was identified. The remaining bone grafting material was placed into the L3-4, L4-5 posterior lateral gutter he order to accomplish posterolateral fusion at the L3- 4, L4-5 level. At this time the tulips were attached to the L3, L4-L5 pedicle screw shanks. After measuring the length of the rods, they were inserted into the tulips of the pedicle screws and locked in place using locking caps and torque limiting screwdriver bilaterally. Total 6 caps and 2 titanium rods was used in order to complete the posterior instrumentation construct. Patient's spondylolisthesis at L4-5 level was reduced using the locking caps and a threaded locking mechanism. After all the hardware was placed, and confirmed with AP and lateral C-arm imaging, the wound was then irrigated with sterile normal saline and packed with Ray-Lucien gauze for 3 min to accomplish hemostasis. After the gauze was removed the deep fascia was closed with #1 Vicryl suture. The subcutaneous layer was closed with 2-0 Vicryl. The skin was closed with skin lisa. Patient tolerated the procedure well. There were no complications. Neuro monitoring system was used to monitor patient's neurologic status throughout entire procedure. There was no disturbance of the neural monitoring signals throughout the case. The Operation could not have been safely performed without compromising the technical result or length of the procedure, without the assistance of a skilled rn surgical pcu. The rn surgical pcu was medically necessary for proper positioning, retraction and manipulation of instruments, proper exposure, surgical preparation, and manipulation of tissue. Complications: none Post-operative Condition: stable Disposition: PACU Plan for aftercare: Admit to inpatient hospital
[2023-09-21] MEDS: LACTATED RINGERS 1,000 ML 125 ML IV (16:25)
[2023-09-21] MEDS: lisinopriL 5 MG TABLET PO (17:46)
[2023-09-21] MEDS: ACETAMINOPHEN 325 MG TABLET 650 MG PO (18:50)
[2023-09-21] MEDS: diphenhydrAMINE 50 MG/ML VIAL 25 MG IV (18:51)
[2023-09-21] MEDS: ASCORBIC ACID 500 MG TABLET 1000 MG PO (21:00)
[2023-09-21] MEDS: GABAPENTIN 300 MG CAPSULE PO (21:00)
[2023-09-21] MEDS: FISH OIL 1,000 MG CAPSULE 1000 MG PO (21:00)
[2023-09-21] MEDS: SENNOSIDES 8.6 MG TABLET 17.2 MG PO (21:00)
[2023-09-21] MEDS: DOCUSATE 100 MG CAPSULE PO (21:00)
[2023-09-22] VITALS: BP 106/53; PULSE 60; RESP 16; TEMP 36.2; O2SAT 95
[2023-09-22] MEDS: ACETAMINOPHEN 325 MG TABLET 650 MG PO ×4 (01:00→20:51)
[2023-09-22] MEDS: LACTATED RINGERS 1,000 ML 125 ML IV (01:05)
[2023-09-22 04:00] VITALS: BP 114/62; PULSE 64; RESP 16; TEMP 36.4; O2SAT 95
[2023-09-22] MEDS: HYDROMORPHONE 0.5 MG INJ IV ×2 (04:05→22:16)
[2023-09-22 04:31] LABS: Hematocrit 34.9 % (36-46); Hemoglobin 11.8 g/dL (12.0-16.0)
[2023-09-22] MEDS: LEVOTHYROXINE 125 MCG TABLET 62.5 MCG PO (06:36)
--- NOTE | 2023-09-22 07:32 | PC.NURSE ---
At about 0525 patient repositioned and accidentally pulled out IV. This RN attempted to start new IV x 3 unsuccessfully. Patient is a difficult stick. service parts coordinator notified, no other RN on unit able to start IV, request made to ER if anyone could try to start IV. Response from ER was maybe at 0700 someone could come up with US. Second dose of Cefazolin is hanging and still needs to be infused. Day shift RN notified of above and will try to insert IV.
--- NOTE | 2023-09-22 07:41 | PM.PNPO.1 ---
Subjective Subjective Date Patient Seen: 09/22/23 Time Patient Seen: 07:42 Interval history: Pain is moderate to severe. Denies fever or chills. Exam Vital Signs (past 8 hours): - 09/22/23 00:00 09/22/23 04:00 Temperature 97.2 F L 97.6 F Pulse Rate 60 64 Respiratory Rate 16 16 Blood Pressure 106/53 L 114/62 Pulse Oximetry 95 95 Oxygen Flow Rate 0 0 Oxygen Delivery Method Room Air Oxygen Flow Rate 0 Narrative Exam Narrative: 78-year-old female resting comfortably in bed in no apparent distress. Neurovascular status is intact bilateral lower extremities. Const General: cooperative and comfortable Nutritional Appearance: average body habitus Orientation: alert Resp Effort & Inspection: normal respiratory effort and able to speak in complete sentences Objective Labs 09/22/23 03:50 Labs: Laboratory Results - last 24 hr 09/22/23 03:50 Hgb 11.8 L Hct 34.9 L PFSH Medical History HTN (hypertension) Surgical History Hx of bilateral cataract extraction Hx of parathyroidectomy (02/2009) [place] teeth removed History of endometrial ablation Hx of colonoscopy History of hymenectomy History of cerebral aneurysm repair (2008) Family History Father Cancer Grandmother Cancer Mother Hypertension High cholesterol Social History household members: spouse Smoking Status: Never smoker alcohol intake: current Assessment & Plan Post-op Postoperative Procedures: Procedures Operation Date: 09/21/23 11:45 Actual Procedure Side Surgeon p L3-4, L4-5 TLIF with posterior instrumentation-Robot Dayron Ford MD Postoperative day: 1 Postoperative status: doing well and marginal pain control Postoperative plan: routine post-op care Postoperative plan narrative: Multimodal pain management Mobilize with physical therapy, limit bending, twisting, lifting Disposition likely home today or tomorrow Quality VTE Deep Vein Thrombosis/Pulmonary Embolism Present on Admission: No
[2023-09-22] MEDS: CEFAZOLIN 2 GM/100 ML PREMIX 100 ML IV (08:01)
[2023-09-22] MEDS: FISH OIL 1,000 MG CAPSULE 1000 MG PO ×2 (08:47→20:52)
[2023-09-22] MEDS: MAGNESIUM OXIDE 400 MG TABLET PO (08:47)
[2023-09-22] MEDS: GABAPENTIN 300 MG CAPSULE PO ×2 (08:47→20:51)
[2023-09-22] MEDS: ASCORBIC ACID 500 MG TABLET 1000 MG PO ×2 (08:47→20:52)
[2023-09-22] MEDS: CHOLECALCIFEROL (VITAMIN D3) 1,000 UNIT TABLET 2000 UNIT PO (08:47)
[2023-09-22] MEDS: DOCUSATE 100 MG CAPSULE PO ×2 (08:48→20:52)
[2023-09-22] MEDS: hydroCHLOROthiazide 25 MG TABLET 12.5 MG PO (08:48)
--- NOTE | 2023-09-22 09:05 | OT.IP.EVAL ---
Current Diagnoses Spondylolisthesis, lumbar region (09/21/23) Spinal stenosis, lumbar region with neurogenic claudication (09/21/23) Surgery Performed Operation Date: 09/21/23 11:45 Actual Procedures p L3-4, L4-5 TLIF with posterior instrumentation-Robot - Dayron Ford MD Past Medical History (Last Reviewed 09/22/23 @ 07:42 by Dameon Brower PA-C) HTN (hypertension) Surgical History (Last Reviewed 09/22/23 @ 07:42 by Dameon Brower PA-C) History of cerebral aneurysm repair (2008) History of endometrial ablation History of hymenectomy Hx of bilateral cataract extraction Hx of colonoscopy Hx of parathyroidectomy (02/2009) [place] teeth removed Occupational Therapy Inpatient Evaluation/Re-Eval M1 PT/OT-IP Prior Functional Status Start: 09/22/23 12:23 Freq: NEEDED Status: Active Protocol: Document 09/22/23 10:55 AB (Rec: 09/22/23 12:34 AB [id number]) Medical Review Prior Functional Status Medical History Reviewed Yes Communication able to make needs known Mobility and Gait pt stated that she was independent with all mobilities and ambulation without AD Social History Household Members spouse Living Arrangements House Number of Floors (Floors) One Floor Number of Stairs To Enter/Railing? no steps to enter Home Environment Standard Height Toilet,Walk in Shower Home Equipment Raised Toilet Seat Without Armrests Additional Social History Comment pt plans to sleep on her couch : in/out L side of the couch pt plans to just sponge bathe initially at d/c pt has a standard walker and walking sticks M2 OT-IP Current Condition Start: 09/22/23 12:49 Freq: Status: Active Protocol: Document 09/22/23 09:05 CCC (Rec: 09/22/23 13:13 [facility] [id number]) Occupational Therapy Current Condition Current Condition Evaluation Date 09/22/23 Treatment Diagnosis S/P L3-4, L4-5 TLIF Diagnosis Onset Date 09/21/23 Post Operative Precautions Lumbar Precautions Log Roll,No Twisting,Limit Bending,Lifting Restriction of 10 lbs,Gait Belt above Incisional Area M3 OT- IP Subjective and Pain Start: 09/22/23 12:49 Freq: Status: Active Protocol: Document 09/22/23 09:05 CCC (Rec: 09/22/23 13:13 [facility] [id number]) OT- Subjective Occupational Therapy Visit Type Type Initial Evaluation Visit Start Time 09:05 Visit Stop Time 10:10 Occupational Therapy Visit Comments Patient Comments Pt agreed to get up. Patient/Caregiver Goals To go home. OT Pain Assessment Pain When Pain Assessed At Rest Pain Present Pain Present Pain Reported Location Back Intensity 2 Scale Used Numeric (0 - 10) M4 OT- IP ADL's Start: 09/22/23 12:49 Freq: Status: Active Protocol: Document 09/22/23 09:05 [facility] (Rec: 09/22/23 13:13 [facility] [id number]) OT TRP-Rvul-Epxtalm General Evaluation Self-Feeding Ability Independent OT ADL-Grooming General Evaluation Grooming Ability Standby Assistance OT ADL-Oral Care General Eval Oral Care Ability Standby Assistance Comments Oral Care Comments Pt able to do while standing the the FWW in front of her. OT ADL-Dressing General Eval Lower Body Dressing Ability Maximum Assistance Comments OT Dressing Comments Pt has a performance architect and her will be able to assist her. OT ADL-Toileting General Evaluation Toileting Ability Total Assistance Comments OT Toileting Comments Gomez in place. Able to simulate wiping while on the toilet and pt able to reach appropriately. OT ADL-Bathing Comments OT Bathing Comments Suggested pt get a shower chair, pt states to just sponge off initially. Pt's shower is outside, 5 steps from the bathroom. Educated to cover the dressing durign showering needs. M5 OT- IP IADL's Start: 09/22/23 12:49 Freq: Status: Active Protocol: Document 09/22/23 09:05 [facility] (Rec: 09/22/23 13:13 [facility] [id number]) OT-Instrumental Activities of Daily Living Deficits IADL Deficits Identified Deficits Home Safety Awareness Awareness of Need for Assistance at Home Good Awareness Ability to Problem Solve Emergency Able to Problem Solve Situations Home Safety Comments Pt and daughter to be able to assist. Meal Preparation Meal Preparation Caregiver Provides Assist Refinery Pipeline Operator Refinery Pipeline Operator Caregiver Provides Assist M6 OT- IP Functional Cognition Start: 09/22/23 12:49 Freq: Status: Active Protocol: Document 09/22/23 09:05 [facility] (Rec: 09/22/23 13:13 [facility] [id number]) Cognitive Factors Limiting Selfcare Function Cognitive Ability Level of Alertness Alert Patient Orientation Name,Age,Birthday,Month,Date, Year,Day of Week,Place, Situation Attention Span Ability Capable of Focused Attention, Capable of Sustained Attention Ability to Follow Commands Able to Follow One Step Commands Cognitive Comments Cognitive Assessment Comments Pt able to follow commands for ADL and mobility needs and needing initial educations for her back precaution needs. OT- Vision and Hearing OT- Hearing Assessment OT- Hearing Assessment WFL OT- Vision Assessment Visual Acuity Glasses All The Time Visual Attentiveness WFL Occular Pursuits WFL M7 OT- IP Mobility and Balance Start: 09/22/23 12:49 Freq: Status: Active Protocol: Document 09/22/23 09:05 [facility] (Rec: 09/22/23 13:13 [facility] [id number]) OT- Bed Mobility Assessment Supine to Sit Supine to Sit Assist Standby Assistance,Contact Guard Assistance Sit to Supine Sit to Supine Assist Standby Assistance Scooting Scooting to Edge of Bed Standby Assistance OT-Transfer Assessment Sit to and From Stand Sit to and from Stand Contact Guard Assistance Transfers Transfer Ability Contact Guard Assistance Technique Transfer Destination Bed,Chair Devices Transfer Assistive Devices Gait Belt,Front Wheeled Walker Comments Mobility Comments CGA to get up and needing initially education for technique of log rolling, transitions to stand as pt tends to lean back on her heels when standing to the FWW . VC to hand the FWW in front of her more when walking. Pt states has a standard walker at home. OT- Balance Assessment Sitting Balance and Reactions Static Sitting Balance Ability Good Dynamic Sitting Balance Ability Good Standing Balance and Reactions Static Standing Balance Ability Fair Dynamic Standing Balance Ability Fair M8 OT- IP Objective Assessments Start: 09/22/23 12:49 Freq: Status: Active Protocol: Document 09/22/23 09:05 [facility] (Rec: 09/22/23 13:13 [facility] [id number]) OT Gross Range of Motion Upper Extremity Range of Motion Assessment Left Impaired M9 OT- IP Assessment and Plan Start: 09/22/23 12:49 Freq: Status: Active Protocol: Document 09/22/23 09:05 [facility] (Rec: 09/22/23 13:13 [facility] [id number]) OT Summary Assessment and Plan Potential Rehabilitation Potential Good Analytic Complexity at Evaluation Low Summary OT Impairments Pain,Strength,Balance, Functional Mobility,Dressing, Toileting,Bathing,Toilet Transfers,Shower Transfers Progress Towards Goals Progressing Toward Goals Assessment Summary Pt low complexity and main barriers are pain, transitions , and pain. Pt has a supportive family to be able to assist her when medically stable. Able to initiate OT equipment needs, techniques for bed mobility, car transfers and mobility with the walker. Pt to go home with her family when medically stable. Goals Self-Feeding Goal Independent Grooming Goal Independent Dressing Goal Minimal Assistance,Radiator Specialist Toileting Goal Independent Bathing Goal Standby Assistance Toilet Transfer Goal Independent Shower Transfer Goal Standby Assistance Days to Meet Goals 7 Frequency of Treatment Frequency Of Treatment Once a Day Treatment Plan OT Treatment Plan ADL Training,Functional Mobility,Patient/Family Education,Discharge Planning Discharge Recommendations OT Discharge Recommendations Home with 06/10 Assist Available Transportation Needs at Discharge Private Vehicle
--- NOTE | 2023-09-22 10:55 | PT.IIE ---
Current Diagnoses Spondylolisthesis, lumbar region (09/21/23) Spinal stenosis, lumbar region with neurogenic claudication (09/21/23) Surgery Performed Operation Date: 09/21/23 11:45 Actual Procedures p L3-4, L4-5 TLIF with posterior instrumentation-Robot - Dayron Ford MD Surgical History (Last Reviewed 09/22/23 @ 07:42 by CHADWICK RogersC) History of cerebral aneurysm repair (2008) History of endometrial ablation History of hymenectomy Hx of bilateral cataract extraction Hx of colonoscopy Hx of parathyroidectomy (02/2009) [place] teeth removed Medical History (Last Reviewed 09/22/23 @ 07:42 by CHADWICK RogersC) HTN (hypertension) Physical Therapy Inpatient Evaluation/Re-Eval M1 PT/OT-IP Prior Functional Status Start: 09/22/23 12:23 Freq: NEEDED Status: Active Protocol: Document 09/22/23 10:55 AB (Rec: 09/22/23 12:34 AB [id number]) Medical Review Prior Functional Status Medical History Reviewed Yes Communication able to make needs known Mobility and Gait pt stated that she was independent with all mobilities and ambulation without AD Social History Household Members spouse Living Arrangements House Number of Floors (Floors) One Floor Number of Stairs To Enter/Railing? no steps to enter Home Environment Standard Height Toilet,Walk in Shower Home Equipment Raised Toilet Seat Without Armrests Additional Social History Comment pt plans to sleep on her couch : in/out L side of the couch pt plans to just sponge bathe initially at d/c pt has a standard walker and walking sticks M2 PT-IP Current Condition Start: 09/22/23 12:23 Freq: NEEDED Status: Active Protocol: Document 09/22/23 10:55 AB (Rec: 09/22/23 12:34 AB [id number]) Physical Therapy Current Condition Current Condition Evaluation Date 09/22/23 Treatment Diagnosis s/p L3-4, L4-5 TLIF; difficulty in walking Onset Date 09/21/23 M3 PT-IP Subjective Start: 09/22/23 12:23 Freq: NEEDED Status: Active Protocol: Document 09/22/23 10:55 AB (Rec: 09/22/23 12:34 AB [id number]) Subjective Physical Therapy Visit Type Type Initial Evaluation Visit Start Time 10:55 Visit Stop Time 11:35 Number of POWER STATION OPERATOR Visits 0 Physical Therapy Visit Comments Patient Comments agreeable to do PT Therapy Pain Assessment Pain When Pain Assessed At Rest Location Back Intensity 4 Scale Used marcelo 8/10 with mobility Pain Behaviors Guarding Pain Management Techniques Apply Cold,Distraction, Modification of Treatment,Re- positioning,Timing of Activity with Medications M4 PT-IP Mobility and Gait Start: 09/22/23 12:23 Freq: NEEDED Status: Active Protocol: Document 09/22/23 10:55 AB (Rec: 09/22/23 12:34 AB [id number]) PT-Bed Mobility Assessment Rolling Type of Rolling Log Rolling Level of Assist Standby Assistance Supine to Sit Supine to Sit Standby Assistance Sit to Supine Sit to Supine Standby Assistance PT-Transfer Assessment Sit to and From Stand Sit to and from Stand Contact Guard Assistance Equipment Transfer Assistive Device Gait Belt,Front Wheeled Walker Orthotic/Prosthetic Devices or Brace: No Transfers Transfer Destination Bed,Chair Transfer Technique ambulated Transfer Ability Level of Assist Contact Guard Assistance,1 Person Assistance,Use of Upper Extremities Comments Mobility Comments pt sitting on the chair. obtained PLOF and home set up from pt. reviewed back precautions with pt and log roll bed mobility. pt completed sit to stand CGA and ambulated ~ 15 ft using fWW CGA. pt sat on EOB and completed log roll sit<> supine SBA. pt does not have a FWW at home and only has a standard walker. Assessed ambulation using standard walker. pt completed sit to stand from EOB CGA. repeated x 2 reps. pt ambulated ~ 15 ft using standard walker SBA to CGA and cues for safety. pt sat on the chair. positioned pt on the chair. call light and table placed within reach. [facility] and spouse will not be able to come in for caregiver training. daughter in room with pt and can do training but will not be at home to assist pt. Gait Assessment Gait Gait Assistance Required: Standby Assistance,Contact Guard Assist Distance (Feet) 20 Able to Maintain Weight Bearing Status Yes During Gait Assistive Devices Assistive Device Gait Belt,Front Wheeled Walker ,Standard Walker Orthotic/Prosthetic Devices or Brace: No Gait Deviations General Gait Pattern Decreased Stride Length, Decreased Feet Clearance Factors Limiting Gait Function Factors Limiting Gait Function Decreased Activity Tolerance, Decreased Strength,Limited Range of Motion,Pain,Poor Balance PT-Balance Assessment Sitting Balance and Reactions Static Sitting Balance Ability Good Dynamic Sitting Balance Ability Good Standing Balance and Reactions Static Standing Balance Ability Fair Dynamic Standing Balance Ability Fair Device Used FWW M5 PT-IP Objective Assessments Start: 09/22/23 12:23 Freq: NEEDED Status: Active Protocol: Document 09/22/23 10:55 AB (Rec: 09/22/23 12:34 AB [id number]) Orientation Orientation/Cognition Level of Alertness Alert Orientation Name,Place,Situation Language Function Ability No Deficits Noted Safety Awareness Decreased Safety Awareness Memory Description Short Term Impaired Gross Range of Motion Lower Extremity ROM Assessment Within Functional Limits Strength Lower Extremity Strength Assessment Within Functional Limits Coordination Assessment Gross Coordination Gross Coordination WNL Sensation Assessment Sensation Gross Sensation WNL Muscle Tone Muscle Tone WNL Yes M6 PT-IP Treatment Start: 09/22/23 12:23 Freq: NEEDED Status: Active Protocol: Document 09/22/23 10:55 AB (Rec: 09/22/23 12:34 AB [id number]) Physical Therapy Treatment Education Education Provided Precautions,Weight Bearing Status,Post-Op Packet,Safety M7 PT-IP Assessment and Plan Start: 09/22/23 12:23 Freq: NEEDED Status: Active Protocol: Document 09/22/23 10:55 AB (Rec: 09/22/23 12:34 AB [id number]) PT Summary Assessment and Plan Potential Rehabilitation Potential Fair Summary Impairments Pain,ROM,Strength,Balance, Coordination,Sensation,Tone, Cognition,Bed Mobility, Transfers,Gait,Activity Tolerance Assessment Summary pt is a 78 y/o F s/p L3-4, L4- 5 TLIF POD 1. pt has back precautions. pt requiring SBA to CGA with mobility using FWW and plans to go home with spouse to assist her. pt may go home when medically stable. Goals Bed Mobility Goal Independent Transfer Goal Independent,Front Wheeled Walker Gait Goal Independent,Front Wheel Walker Gait Distance 200 Days to Meet Goals 5 Frequency of Treatment Frequency Of Treatment Twice a Day Other frequency or as tolerated Treatment Plan Physical Therapy Treatment Plan Bed Mobility Training,Transfer Training,Gait Training, Therapeutic Exercise,Balance Retraining,Post Op Education, Discharge Planning,Hot or Cold Pack,Neuromuscular Re-ed, Coordination Retraining,Manual Therapy Precautions Lumbar Precautions Log Roll,No Twisting,Limit Bending,Lifting Restriction of 10 lbs,Gait Belt above Incisional Area Recommendations To Nursing Amount of Assist Needed 1 Person Assist Discharge Recommendations PT Discharge Recommendations Home with Assistance Transportation Needs at Discharge Private Vehicle
[2023-09-22 12:51] VITALS: BP 131/51; PULSE 66; RESP 22; O2SAT 96
--- NOTE | 2023-09-22 13:30 | PT.IPTN ---
Current Diagnoses Spondylolisthesis, lumbar region (09/21/23) Spinal stenosis, lumbar region with neurogenic claudication (09/21/23) Surgery Performed Operation Date: 09/21/23 11:45 Actual Procedures p L3-4, L4-5 TLIF with posterior instrumentation-Robot - Dayron Ford MD Physical Therapy Treatment Note M2 PT-IP Current Condition Start: 09/22/23 12:23 Freq: NEEDED Status: Active Protocol: Document 09/22/23 10:55 AB (Rec: 09/22/23 12:34 AB [id number]) Physical Therapy Current Condition Current Condition Evaluation Date 09/22/23 Treatment Diagnosis s/p L3-4, L4-5 TLIF; difficulty in walking Onset Date 09/21/23 M3 PT-IP Subjective Start: 09/22/23 12:23 Freq: NEEDED Status: Active Protocol: Document 09/22/23 13:30 AB (Rec: 09/22/23 15:36 AB [id number]) Subjective Physical Therapy Visit Type Type Treatment Note Visit Start Time 13:30 Visit Stop Time 14:05 Number of PLYWOOD AND VENEER REPAIRER Visits 0 Physical Therapy Visit Comments Patient Comments agreeable to do PT Therapy Pain Assessment Pain When Pain Assessed At Rest Pain Present Pain Present Pain Reported Location Back Intensity 5 Scale Used Numeric (0 - 10) Pain Management Techniques Distraction,Modification of Treatment,Re-positioning, Timing of Activity with Medications M4 PT-IP Mobility and Gait Start: 09/22/23 12:23 Freq: NEEDED Status: Active Protocol: Document 09/22/23 13:30 AB (Rec: 09/22/23 15:36 AB [id number]) PT-Bed Mobility Assessment Rolling Type of Rolling Log Rolling Level of Assist Standby Assistance Supine to Sit Supine to Sit Standby Assistance Sit to Supine Sit to Supine Standby Assistance PT-Transfer Assessment Sit to and From Stand Sit to and from Stand Contact Guard Assistance,1 Person Assistance,Use of Upper Extremities Equipment Transfer Assistive Device Gait Belt,Front Wheeled Walker Orthotic/Prosthetic Devices or Brace: No Transfers Transfer Destination Bed Transfer Technique ambulated Transfer Ability Level of Assist Standby Assistance,Contact Guard Assistance,1 Person Assistance,Use of Upper Extremities Comments Mobility Comments pt sitting on the chair. daughter in room. reviewed back precautions with pt and pt recalled 2/3. caregiver training conducted. educated daugther on how to use safety belt and how to assist pt. daughter was able to put safety belt on pt and assisted pt with sit to stand CGA. pt ambulated using std walker to EOB CGA. pt completed sit<> supine SBA. occasional cues provided for safety. pt completed sit to stand from EOB CGA and ambulated in the hallway using std walker SBA to CGA ~ 100 ft. pt ambulated back to her room and requested to go back to bed. completed sit to supine SBA. positioned pt on the bed. call light and table placed within reach. pt stated that her spouse will be in tomorrow to pick her up and can do training tomorrow. set up caregiver training: ~ 930/1000am tomorrow Gait Assessment Gait Gait Assistance Required: Standby Assistance,Contact Guard Assist Distance (Feet) 100 Able to Maintain Weight Bearing Status Yes During Gait Assistive Devices Assistive Device Gait Belt,Standard Walker Orthotic/Prosthetic Devices or Brace: No Gait Deviations General Gait Pattern Decreased Stride Length, Decreased Feet Clearance Factors Limiting Gait Function Factors Limiting Gait Function Decreased Activity Tolerance, Decreased Strength,Difficulty Following Directions,Limited Range of Motion,Pain,Poor Balance,Poor Safety Awareness M5 PT-IP Objective Assessments Start: 09/22/23 12:23 Freq: NEEDED Status: Active Protocol: Document 09/22/23 10:55 AB (Rec: 09/22/23 12:34 AB [id number]) Orientation Orientation/Cognition Level of Alertness Alert Orientation Name,Place,Situation Language Function Ability No Deficits Noted Safety Awareness Decreased Safety Awareness Memory Description Short Term Impaired Gross Range of Motion Lower Extremity ROM Assessment Within Functional Limits Strength Lower Extremity Strength Assessment Within Functional Limits Coordination Assessment Gross Coordination Gross Coordination WNL Sensation Assessment Sensation Gross Sensation WNL Muscle Tone Muscle Tone WNL Yes M6 PT-IP Treatment Start: 09/22/23 12:23 Freq: NEEDED Status: Active Protocol: Document 09/22/23 13:30 AB (Rec: 09/22/23 15:36 AB [id number]) Physical Therapy Treatment Education Education Provided Precautions,Weight Bearing Status,Safety M7 PT-IP Assessment and Plan Start: 09/22/23 12:23 Freq: NEEDED Status: Active Protocol: Document 09/22/23 13:30 AB (Rec: 09/22/23 15:36 AB [id number]) PT Summary Assessment and Plan Potential Rehabilitation Potential Good Summary Impairments Pain,ROM,Strength,Balance, Coordination,Sensation,Tone, Cognition,Bed Mobility, Transfers,Gait,Activity Tolerance Assessment Summary pt requiring SBA to CGA with mobility with occasional cues for safety provided. caregiver training tomorrow at 930/ 1000am. will continue to assess. Goals Bed Mobility Goal Independent Transfer Goal Independent,Front Wheeled Walker Gait Goal Independent,Front Wheel Walker Gait Distance 200 Days to Meet Goals 5 Frequency of Treatment Frequency Of Treatment Twice a Day Other frequency or as tolerated Treatment Plan Physical Therapy Treatment Plan Bed Mobility Training,Transfer Training,Gait Training, Therapeutic Exercise,Balance Retraining,Post Op Education, Discharge Planning,Hot or Cold Pack,Neuromuscular Re-ed, Coordination Retraining,Manual Therapy Other Recommendations and Next Treatment caregiver trainin/10: 930/ Focus 1000 am Precautions Lumbar Precautions Log Roll,No Twisting,Limit Bending,Lifting Restriction of 10 lbs,Gait Belt above Incisional Area Recommendations To Nursing Amount of Assist Needed 1 Person Assist Discharge Recommendations PT Discharge Recommendations Home with Assistance Transportation Needs at Discharge Private Vehicle
--- NOTE | 2023-09-22 14:28 | CM.DANOTE ---
DCP Assessment Note Pt is a 78yo F here following a TLIF with Dr. Ford on 09.21.23. PCP Alexandria Kiser Payer Medicare and [employer] POSTAL DELIVERY OFFICER reviewed EMR. Pt lives on [address] with spouse Salvatore, . Per PT eval, rec home with assistance. Per ortho PA, wants to keep pt another night due to living on the [place] and wanting to monitor for one more night. POSTAL DELIVERY OFFICER met with pt and dtr Joselyn in room. Pt confirms living at home indep/active at baseline. Has a walker/cane/necessary equip for home. Reports her other dtr will be staying with her for a week in addition to spouse to recover from surgery. Pt concerned about ferry pass. This POSTAL DELIVERY OFFICER explained that pt must attempt to get a reservation first prior to providing a medical priority boarding pass. Dtr Joselyn assisted pt in getting 5pm ferry reservation for Thursday (only time available). Joselyn emailed reservation to this POSTAL DELIVERY OFFICER. This POSTAL DELIVERY OFFICER printed out pass and gave it to pt in room. Pt appreciative. Reports spouse will be over from [place] first thing in morning to assist in getting pt home on 5[place] ferry. Per pt and dtr, plan for CG training in room tomorrow at 9am with pt and dtr that will be staying with pt. Pt denies any other CM needs at this point. P: anticipate home with spouse and dtr support tomorrow, transport on 5pm ferry back to [place]. CM team will continue to follow as needed BENNETT Badillo Discharge Planning/Care Management CM Discharge Assessment Start: 09/22/23 14:24 Freq: Status: Active Protocol: Document 09/22/23 14:25 (Rec: 09/22/23 14:28 [id number]) Discharge Planning Assessment Assigned Associate Professor Of Theology BENNETT Olea DPOA/Assigned Designee Name Salvatore spouse Contact Information [phone] Advance Directives? Yes Advance Directives on File Yes History Provided By Patient Prior Living Arrangements House Household Members spouse Independent with ADL's Yes Is patient alert and oriented? Yes DME Already Rented / Owned Bath Bench,FWW / Walker,Cane Discharge Plan Home Transportation Arrangement spouse in POV Referrals Initiated None needed Whiteboard Updated in Patient Room with Yes name and ext. # of Associate Professor Of Theology Review Status In Process Please Provide Date Initial DC 09/22/23 Assessment Was Performed Next Review Type Continued Stay Review Pre-Anesthesia Assessment Start: 09/15/23 13:52 Freq: Status: Active Protocol: Document 09/15/23 13:52 [facility] (Rec: 09/15/23 15:08 [facility] [id number]) Pre-Anesthesia Assessment Preferred Name Alexandria Patient Information Reviewed Via Phone Assessment Assessment Completed With Patient Primary Care Provider Alexandria Kiser Seen Specialist in Last 12 Months Yes Specialist Seen Orthopedist Primary Language Bulgarian Shot Examiner Required No Height 156.21 cm Weight 57.606 kg Body Mass Index (BMI) 23.6 Hearing Ability Normal Visual Assist Glasses Dentition Type Teeth, Missing Barriers to Learning None Hx Anesthesia Reactions No Hx Family Anesthesia Reaction No Hx Malignant Hyperthermia No Hx Blood Transfusions No Anesthesia Review Requested Yes: PAC courtesy re: Abnormal pre-op EKG Facilities Flight Check Pilot No alcohol intake current alcohol intake frequency holidays/special occasions only Smoking Status Never smoker Substance Use Type does not use Pain Present Pain Reported Musculoskeletal Symptoms Abnormal Gait,Back Pain, Difficulty Walking,Muscle Weakness,Numbness,Radiating Pain into Limb,Tingling History of Falling (Recent or History of No ) Patient is completely paralyzed or No completely immobile Mental Status Oriented to own ability Is patient on oxygen? No Does patient have [place]/SOB No Hx Sleep Apnea No Currently Taking a Beta Lily No Can You Climb a Flight of Stairs Without Yes SOB Hx Chest Pain No Hx SOB No Hx Syncope or Dizziness No Anti-Coagulant Therapy No Has a Claim Clerk No Cardiac Testing No Hx Pacemaker/ICD No Pacemaker Rep Required? No Cardiac Clearance Received No Comment Walks 2 miles everyday Diet Type At Home Regular Dysphagia No Gastrointestinal Symptoms Constipation Chronic UTI No Urinary Catheter Present No Hx Urinary Self Catheterization No Diabetes No Patient No Lactating No Hx Drug Resistant Organism No Presence of External or Internal Medical Yes: Brain clips, eye IOLs Devices Marital Status Lives With spouse Current Living Arrangements House Number of Floors (Floors) One Floor Support System Spouse Does the Patient Have Assistance After Yes Surgery Patient Discharge Plan Description Return Home Comment Pt advised 2-3 day length of stay per surgeon Feels Safe in Current Environment Yes Been Physically Hurt or Threatened By a No Person in Current Environment Do you have thoughts of harming yourself None or others? Are you currently considering suicide? No Do you have a plan to hurt yourself or No Plan others? Do You Have Any Spiritual Beliefs That No May Affect Your HC Choices? Do You Have Any Cultural Practices That No May Affect Your HC Choices? Comment Moravian Who Can We Speak to About Patient's Care Family, friends Identifying Code for Release of Patient Declines to issue Information Health Care Proxy/Next of Kin Miguelito Chase () Health Care Proxy or cell: Emergency Contact Name Miguelito Chase () Emergency Contact or cell: Advance Directives? Yes Advance Directives on File No Requested Patient Bring Advanced Yes Directives DOS Power of Machine Captain No PAC Instructions Durable medical equipment, Medications to take/avoid, Nasal antibiotic,No ETOH/ petroleum product on skin DOS, NPO,Post-op transportation,Pre -surgical wash,Sensory aids, Sturdy shoes/comfortable clothes,Do not bring valuables and remove jewelry
[2023-09-22 17:39] VITALS: BP 117/54; PULSE 70
[2023-09-22] MEDS: lisinopriL 5 MG TABLET PO (17:39)
[2023-09-22 20:00] VITALS: BP 122/70; PULSE 70; RESP 18; TEMP 36.3; O2SAT 100
[2023-09-22] MEDS: SENNOSIDES 8.6 MG TABLET 17.2 MG PO (20:52)
[2023-09-22] MEDS: SODIUM CHLORIDE 0.9% FLUSH 10 ML IV (22:17)
[2023-09-23] MEDS: HYDROMORPHONE 0.5 MG INJ IV (01:37)
[2023-09-23] MEDS: SODIUM CHLORIDE 0.9% FLUSH 10 ML IV ×2 (01:38→08:45)
[2023-09-23] MEDS: LEVOTHYROXINE 125 MCG TABLET 62.5 MCG PO (05:50)
[2023-09-23] MEDS: ACETAMINOPHEN 325 MG TABLET 650 MG PO ×2 (05:54→12:05)
[2023-09-23 08:00] VITALS: BP 131/60; PULSE 64; RESP 20; TEMP 36.4; O2SAT 98
--- NOTE | 2023-09-23 08:30 | PM.DS.1 ---
History of Present Illness History of Present Illness Date Patient Seen: 09/23/23 Time Patient Seen: 07:00 Chief complaint: INPT Narrative: Operative Date/Time/Diagnoses Date of procedure: 09/21/23 Time of procedure: 12:30 Pre-op diagnosis: 1. 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 L4-5 spondylolisthesis 3. Lumbar foramen stenosis Post-op diagnosis: same Procedure & Clinicians Procedure: 1. L3-4, L4-5 Postero-lateral and posterior interbody fusion 2. L3-4, L4-5 interbody cage placement. 3.L3-4, L4-5 decompressive laminectomy with bilateral facetecomies 4. L3-4, L4-5 Posterior segmental instrumentation 5. [place] of bone marrow from iliac crest 6. Utilization of microsurgical technique and operating microscope 7. Utilization of robotic assisted navigation Same procedure as scheduled: Yes Indications: Patient has been having chronic back pain and worsening lumbar radiculopathy. Patient has lumbar spondylolisthesis and foraminal stenosis correlating with her symptoms. Patient failed multiple conservative management with worsening pain weakness and numbness in her lower extremity. Patient has been having difficulty performing activity of daily living. After discussing risks benefits of treatment options, patient elected proceed with surgery. Surgeon: Dayron Ford Dispute Resolution Specialist: Sulema Graf Click Yes if Unassisted: No Anesthesia Type: General Operative Notes Closure Type: primary Specimen(s): none sent Prosthetic devices, grafts, tissues, transplants, or devices: Globus CREO MIS Screws, Rise cages Applied: catheter Estimated Blood Loss (mL): 150 Discharge Providers Provider Date of admission: 09/21/23 10:23 Discharge Date: 09/23/23 Primary care physician: Alexandria Kiser MD Consults: 09/15/23 15:08 Consult to Anesthesiology Routine Comment: Consulting Provider: Anesthesiologist Reason for consultation: PAC courtesy re: Abnormal pre-op EKG w/cardiology recommendations 09/21/23 16:03 Consult to Occupational Therapy Evaluate & Treat Comment: Physician Instructions: Evaluate and treat Consult to Physical Therapy Evaluate & Treat Comment: Physician Instructions: Evaluate and Treat Discharge provider: Cole Rico PA-C Summary Hospital Course Discharge Diagnosis: Status post L3-4, L4-5 TLIF Hospital Course: Multimodal pain control. Physical therapy. Status at Discharge Cognitive/behavioral status at discharge: oriented Functional status at discharge: uses cane/walker Overall status at discharge: patient is back to baseline Time Spent with Patient Time spent: Greater than 30 minutes Exam Vital Signs (past 8 hours): Oxygen Delivery Method Room Air Oxygen Flow Rate 0 Narrative Exam Narrative: Patient is found lying comfortably in bed. States her pain is controlled with acetaminophen. She has been working with physical therapy and has been able to ambulate around the floor with assistance with a walker. She is anticipating going home today. She states the numbness down her leg has nearly resolved. Only complains of pain is in her back along the surgical site. Dressing is in clean and intact. 5/5 strength in hip flexors, quadriceps, hamstrings, DF, PF, EHL bilaterally. Sensation to light touch intact throughout BLE. Calves soft, compressible, nontender. Objective Labs 09/22/23 03:50 PFSH Medical History HTN (hypertension) Surgical History Hx of bilateral cataract extraction Hx of parathyroidectomy (02/2009) [place] teeth removed History of endometrial ablation Hx of colonoscopy History of hymenectomy History of cerebral aneurysm repair (2008) Family History Father Cancer Grandmother Cancer Mother Hypertension High cholesterol Social History household members: spouse Smoking Status: Never smoker alcohol intake: current Discharge Assessment & Plan Assessment and Plan Assessment: Status post L3-4, L4-5 TLIF Plan of Treatment: 1)?? Continue multimodal pain management. 2) No lifting, twisting, deep bending, prolonged sitting. 3) keep dressing clean and dry, no soaking the incision site and posterior times, no topical ointments or creams to the incision site. 4) Follow up in 2 weeks at [facility] for as scheduled for postop appointment, wound check, staple removal. Patient has been prescribed tramadol 50 mg take every 6 hours as needed for postoperative pain and hydroxyzine 25mg q8hr prn for post operative nausea or spasm.? Discharge Plan Discharge Plan Patient Disposition: Home Provider Discharge Comment: DC pending PT approval Discharge orders & Medications Prescriptions: New tramadol 50 mg tablet 50 mg PO Q6H PRN (Reason: pain) Qty: 40 0RF Continued lutein 20 MG tablet 10 mg PO Q DAY Qty: 0 levothyroxine [Synthroid] 125 MCG tablet 62.5 mg PO SEE INSTRUCTIONS ascorbic acid (vitamin C) [Vitamin C] 1,000 mg Tablet 1 g PO QD-BID magnesium 200 mg Tablet 400 mg PO DAILY Patient Comments: Unsure of dose cholecalciferol (vitamin D3) [Vitamin D3] 2,000 unit Capsule 2,000 unit PO DAILY omega 5-cdl-pfp-fish oil [Fish Oil] 1,000 mg (120 mg-180 mg) Capsule 1,000 mg PO QD-BID gabapentin 300 mg Capsule 300 mg PO BID lisinopril 5 mg Tablet 5 mg PO QPM hydrochlorothiazide 12.5 mg Tablet 12.5 mg PO QAM Follow up/Referrals: Alexandria Kiser MD [Primary Care Provider] - Dayron Ford MD [Physician] - 10/09/23 2:30 pm (Follow up w/ Sulema Graf PA-C, at [facility] Diet/Activity/Treatments Diet: Diet as Tolerated Activity: No deep bending or twisting at the waist. No lifting more than 10 pounds. Cold/Heat Therapy: Heating pad to low back as needed for pain. Skin/Wound/Dressing Care Report to your healthcare provider any signs of infection, such as:: chills, fever, night sweats, unusual drainage and unusual redness Dressing: May shower. Keep dressing as dry as possible. If dressing becomes wet or dirty, may remove and replace with clean, dry gauze. Visit Report/Discharge Packet Instructions: DI for Transforaminal Lumbar Interbody Fusion Stand Alone Forms: Patient Portal/API, Stroke Signs & Symptoms, Surgery Discharge Discharge Data Primary Care Provider: Alexandria Kiser Quality VTE Deep Vein Thrombosis/Pulmonary Embolism Present on Admission: No
[2023-09-23] MEDS: CHOLECALCIFEROL (VITAMIN D3) 1,000 UNIT TABLET 2000 UNIT PO (08:42)
[2023-09-23] MEDS: FISH OIL 1,000 MG CAPSULE 1000 MG PO (08:42)
[2023-09-23] MEDS: GABAPENTIN 300 MG CAPSULE PO (08:43)
[2023-09-23] MEDS: hydroCHLOROthiazide 25 MG TABLET 12.5 MG PO (08:43)
[2023-09-23] MEDS: MAGNESIUM OXIDE 400 MG TABLET PO (08:43)
[2023-09-23] MEDS: ASCORBIC ACID 500 MG TABLET 1000 MG PO (08:44)
[2023-09-23] MEDS: DOCUSATE 100 MG CAPSULE PO (08:44)
--- NOTE | 2023-09-23 09:55 | PT.IPTN ---
Current Diagnoses Spondylolisthesis, lumbar region (09/21/23) Spinal stenosis, lumbar region with neurogenic claudication (09/21/23) Surgery Performed Operation Date: 09/21/23 11:45 Actual Procedures p L3-4, L4-5 TLIF with posterior instrumentation-Robot - Dayron Ford MD Physical Therapy Treatment Note M2 PT-IP Current Condition Start: 09/22/23 12:23 Freq: NEEDED Status: Active Protocol: Document 09/22/23 10:55 AB (Rec: 09/22/23 12:34 AB [id number]) Physical Therapy Current Condition Current Condition Evaluation Date 09/22/23 Treatment Diagnosis s/p L3-4, L4-5 TLIF; difficulty in walking Onset Date 09/21/23 M3 PT-IP Subjective Start: 09/22/23 12:23 Freq: NEEDED Status: Active Protocol: Document 09/23/23 09:55 AB (Rec: 09/23/23 12:04 AB [id number]) Subjective Physical Therapy Visit Type Type Treatment Note Visit Start Time 09:55 Visit Stop Time 10:10 Number of REFLEXOLOGIST Visits 0 Physical Therapy Visit Comments Patient Comments agreeable to do PT Therapy Pain Assessment Pain When Pain Assessed At Rest Pain Present Pain Present Pain Reported Location Back Intensity 6 Scale Used Numeric (0 - 10) Pain Management Techniques Distraction,Modification of Treatment,Re-positioning, Timing of Activity with Medications M4 PT-IP Mobility and Gait Start: 09/22/23 12:23 Freq: NEEDED Status: Active Protocol: Document 09/23/23 09:55 AB (Rec: 09/23/23 12:04 AB [id number]) PT-Bed Mobility Assessment Supine to Sit Supine to Sit Standby Assistance Sit to Supine Sit to Supine Standby Assistance PT-Transfer Assessment Sit to and From Stand Sit to and from Stand Contact Guard Assistance,1 Person Assistance,Use of Upper Extremities Equipment Transfer Assistive Device Gait Belt,Front Wheeled Walker Orthotic/Prosthetic Devices or Brace: No Transfers Transfer Destination Bed Transfer Technique Stand Step Pivot Transfer Ability Level of Assist Standby Assistance,1 Person Assistance,Use of Upper Extremities Comments Mobility Comments checked on pt and was up using the toilet with nurse in room . PT took over pt's care. spouse in room with pt. pt ambulated to the chair using FWW SBA. educated spouse regarding pt's back precautions and how to do log roll bed mobility. caregiver training conducted. educated spouse on how to use safety belt and how to assist pt. spouse was able to put safety belt on pt and assisted pt with ambulation in room using FWW SBA to CGA ~ 30 ft. pt sat on EOB. demonstrated log roll sit<>supine SBA. pt wanting to brush her teeth and ambulated towards the sink using FWW SBA. Left pt with spouse in room. pt and spouse without fruther concerns. Gait Assessment Gait Gait Assistance Required: Standby Assistance,Contact Guard Assist Distance (Feet) 30 Able to Maintain Weight Bearing Status Yes During Gait Assistive Devices Assistive Device Gait Belt,Front Wheeled Walker Orthotic/Prosthetic Devices or Brace: No Gait Deviations General Gait Pattern Antalgic Factors Limiting Gait Function Factors Limiting Gait Function Decreased Activity Tolerance, Limited Range of Motion,Pain, Poor Balance,Poor Safety Awareness M5 PT-IP Objective Assessments Start: 09/22/23 12:23 Freq: NEEDED Status: Active Protocol: Document 09/22/23 10:55 AB (Rec: 09/22/23 12:34 AB [id number]) Orientation Orientation/Cognition Level of Alertness Alert Orientation Name,Place,Situation Language Function Ability No Deficits Noted Safety Awareness Decreased Safety Awareness Memory Description Short Term Impaired Gross Range of Motion Lower Extremity ROM Assessment Within Functional Limits Strength Lower Extremity Strength Assessment Within Functional Limits Coordination Assessment Gross Coordination Gross Coordination WNL Sensation Assessment Sensation Gross Sensation WNL Muscle Tone Muscle Tone WNL Yes M6 PT-IP Treatment Start: 09/22/23 12:23 Freq: NEEDED Status: Active Protocol: Document 09/23/23 09:55 AB (Rec: 09/23/23 12:04 AB [id number]) Physical Therapy Treatment Education Education Provided Precautions,Safety M7 PT-IP Assessment and Plan Start: 09/22/23 12:23 Freq: NEEDED Status: Active Protocol: Document 09/23/23 09:55 AB (Rec: 09/23/23 12:04 AB [id number]) PT Summary Assessment and Plan Potential Rehabilitation Potential Good Summary Impairments Pain,ROM,Strength,Balance, Coordination,Sensation,Bed Mobility,Transfers,Gait, Activity Tolerance Progress Towards Goals Progressing Toward Goals Assessment Summary pt progressig with mobility. caregiver training conducted and spouse was able to assist pt safely. pt plans to go home today. Goals Bed Mobility Goal Independent Transfer Goal Independent,Front Wheeled Walker Gait Goal Independent,Front Wheel Walker Gait Distance 200 Days to Meet Goals 5 Frequency of Treatment Frequency Of Treatment Twice a Day Other frequency or as tolerated Treatment Plan Physical Therapy Treatment Plan Bed Mobility Training,Transfer Training,Gait Training, Therapeutic Exercise,Balance Retraining,Post Op Education, Discharge Planning,Hot or Cold Pack,Neuromuscular Re-ed, Coordination Retraining,Manual Therapy Precautions Lumbar Precautions Log Roll,No Twisting,Limit Bending,Lifting Restriction of 10 lbs,Gait Belt above Incisional Area Recommendations To Nursing Amount of Assist Needed 1 Person Assist Discharge Recommendations PT Discharge Recommendations Home with Assistance Transportation Needs at Discharge Private Vehicle
--- NOTE | 2023-09-23 09:55 | PT.IPTN ---
Current Diagnoses Spondylolisthesis, lumbar region (09/21/23) Spinal stenosis, lumbar region with neurogenic claudication (09/21/23) Surgery Performed Operation Date: 09/21/23 11:45 Actual Procedures p L3-4, L4-5 TLIF with posterior instrumentation-Robot - Dayron Ford MD Physical Therapy Treatment Note M2 PT-IP Current Condition Start: 09/22/23 12:23 Freq: NEEDED Status: Active Protocol: Document 09/22/23 10:55 AB (Rec: 09/22/23 12:34 AB [id number]) Physical Therapy Current Condition Current Condition Evaluation Date 09/22/23 Treatment Diagnosis s/p L3-4, L4-5 TLIF; difficulty in walking Onset Date 09/21/23 M3 PT-IP Subjective Start: 09/22/23 12:23 Freq: NEEDED Status: Active Protocol: Document 09/23/23 09:55 AB (Rec: 09/23/23 12:04 AB [id number]) Subjective Physical Therapy Visit Type Type Treatment Note Visit Start Time 09:55 Visit Stop Time 10:10 Number of [employer] Visits 0 Physical Therapy Visit Comments Patient Comments agreeable to do PT Therapy Pain Assessment Pain When Pain Assessed At Rest Pain Present Pain Present Pain Reported Location Back Intensity 6 Scale Used Numeric (0 - 10) Pain Management Techniques Distraction,Modification of Treatment,Re-positioning, Timing of Activity with Medications M4 PT-IP Mobility and Gait Start: 09/22/23 12:23 Freq: NEEDED Status: Active Protocol: Document 09/23/23 09:55 AB (Rec: 09/23/23 12:04 AB [id number]) PT-Bed Mobility Assessment Supine to Sit Supine to Sit Standby Assistance Sit to Supine Sit to Supine Standby Assistance PT-Transfer Assessment Sit to and From Stand Sit to and from Stand Contact Guard Assistance,1 Person Assistance,Use of Upper Extremities Equipment Transfer Assistive Device Gait Belt,Standard Walker Orthotic/Prosthetic Devices or Brace: No Transfers Transfer Destination Bed Transfer Technique Stand Step Pivot Transfer Ability Level of Assist Standby Assistance,1 Person Assistance,Use of Upper Extremities Comments Mobility Comments checked on pt and was up using the toilet with nurse in room . PT took over pt's care. spouse in room with pt. pt ambulated to the chair using std walker SBA. educated spouse regarding pt's back precautions and how to do log roll bed mobility. caregiver training conducted. educated spouse on how to use safety belt and how to assist pt. spouse was able to put safety belt on pt and assisted pt with ambulation in room using std walker SBA to CGA ~ 30 ft. pt sat on EOB. demonstrated log roll sit<>supine SBA. pt wanting to brush her teeth and ambulated towards the sink using std walker SBA. Left pt with spouse in room. pt and spouse without fruther concerns. Gait Assessment Gait Gait Assistance Required: Standby Assistance,Contact Guard Assist Distance (Feet) 30 Able to Maintain Weight Bearing Status Yes During Gait Assistive Devices Assistive Device Gait Belt,Standard Walker Orthotic/Prosthetic Devices or Brace: No Gait Deviations General Gait Pattern Antalgic Factors Limiting Gait Function Factors Limiting Gait Function Decreased Activity Tolerance, Limited Range of Motion,Pain, Poor Balance,Poor Safety Awareness M5 PT-IP Objective Assessments Start: 09/22/23 12:23 Freq: NEEDED Status: Active Protocol: Document 09/22/23 10:55 AB (Rec: 09/22/23 12:34 AB [id number]) Orientation Orientation/Cognition Level of Alertness Alert Orientation Name,Place,Situation Language Function Ability No Deficits Noted Safety Awareness Decreased Safety Awareness Memory Description Short Term Impaired Gross Range of Motion Lower Extremity ROM Assessment Within Functional Limits Strength Lower Extremity Strength Assessment Within Functional Limits Coordination Assessment Gross Coordination Gross Coordination WNL Sensation Assessment Sensation Gross Sensation WNL Muscle Tone Muscle Tone WNL Yes M6 PT-IP Treatment Start: 09/22/23 12:23 Freq: NEEDED Status: Active Protocol: Document 09/23/23 09:55 AB (Rec: 09/23/23 12:04 AB [id number]) Physical Therapy Treatment Education Education Provided Precautions,Safety M7 PT-IP Assessment and Plan Start: 09/22/23 12:23 Freq: NEEDED Status: Active Protocol: Document 09/23/23 09:55 AB (Rec: 09/23/23 12:04 AB [id number]) PT Summary Assessment and Plan Potential Rehabilitation Potential Good Summary Impairments Pain,ROM,Strength,Balance, Coordination,Sensation,Bed Mobility,Transfers,Gait, Activity Tolerance Progress Towards Goals Progressing Toward Goals Assessment Summary pt progressing with mobility and needing SBA to CGA with ambulation using standard walker. caregiver training conducted and spouse was able to assist pt safely. pt plans to go home today. Goals Bed Mobility Goal Independent Transfer Goal Independent,Front Wheeled Walker Gait Goal Independent,Front Wheel Walker Gait Distance 200 Days to Meet Goals 5 Frequency of Treatment Frequency Of Treatment Twice a Day Other frequency or as tolerated Treatment Plan Physical Therapy Treatment Plan Bed Mobility Training,Transfer Training,Gait Training, Therapeutic Exercise,Balance Retraining,Post Op Education, Discharge Planning,Hot or Cold Pack,Neuromuscular Re-ed, Coordination Retraining,Manual Therapy Precautions Lumbar Precautions Log Roll,No Twisting,Limit Bending,Lifting Restriction of 10 lbs,Gait Belt above Incisional Area Recommendations To Nursing Amount of Assist Needed 1 Person Assist Discharge Recommendations PT Discharge Recommendations Home with Assistance Transportation Needs at Discharge Private Vehicle
--- NOTE | 2023-09-23 10:42 | OT.IP.TRT ---
Current Diagnoses Spondylolisthesis, lumbar region (09/21/23) Spinal stenosis, lumbar region with neurogenic claudication (09/21/23) Surgery Performed Operation Date: 09/21/23 11:45 Actual Procedures p L3-4, L4-5 TLIF with posterior instrumentation-Robot - Dayron Ford MD Occupational Therapy Treatment Note M2 OT-IP Current Condition Start: 09/22/23 12:49 Freq: Status: Active Protocol: Document 09/22/23 09:05 [facility] (Rec: 09/22/23 13:13 [facility] [id number]) Occupational Therapy Current Condition Current Condition Evaluation Date 09/22/23 Treatment Diagnosis S/P L3-4, L4-5 TLIF Diagnosis Onset Date 09/21/23 Post Operative Precautions Lumbar Precautions Log Roll,No Twisting,Limit Bending,Lifting Restriction of 10 lbs,Gait Belt above Incisional Area M3 OT- IP Subjective and Pain Start: 09/22/23 12:49 Freq: Status: Active Protocol: Document 09/23/23 10:42 [facility] (Rec: 09/23/23 13:20 [facility] [id number]) OT- Subjective Occupational Therapy Visit Type Type Treatment Note Visit Start Time 10:42 Visit Stop Time 11:35 Occupational Therapy Visit Comments Patient Comments Pt wanting to shower and able to do caregiver training with her . Patient/Caregiver Goals To go home. OT Pain Assessment Pain When Pain Assessed During Mobility Pain Present Pain Present Pain Reported M4 OT- IP ADL's Start: 09/22/23 12:49 Freq: Status: Active Protocol: Document 09/23/23 10:42 [facility] (Rec: 09/23/23 13:20 [facility] [id number]) OT [id number] General Evaluation Self-Feeding Ability Independent OT ADL-Grooming Comments OT Grooming Comments Not performed. OT ADL-Oral Care Comments Oral Care Comments Not performed. OT ADL-Dressing General Eval Upper Body Dressing Ability Independent Lower Body Dressing Ability Minimal Assistance Comments OT Dressing Comments Pt needing assist to get her shoes on. Pt able able to use the supervisor metal hanging to assist for her pants and brief. Educated pt' s to either assist with clothing or for her balance. OT ADL-Toileting Comments OT Toileting Comments Pt not having to go. OT ADL-Bathing General Evaluation Bathing Ability Moderate Assistance Comments OT Bathing Comments Assist for her hair, back and lower legs. Pt will still benefit from a shower chair at home and hand held shower spray. M5 OT- IP IADL's Start: 09/22/23 12:49 Freq: Status: Active Protocol: Document 09/22/23 09:05 [facility] (Rec: 09/22/23 13:13 [facility] [id number]) OT-Instrumental Activities of Daily Living Deficits IADL Deficits Identified Deficits Home Safety Awareness Awareness of Need for Assistance at Home Good Awareness Ability to Problem Solve Emergency Able to Problem Solve Situations Home Safety Comments Pt and daughter to be able to assist. Meal Preparation Meal Preparation Caregiver Provides Assist Scientific Software Developer Scientific Software Developer Caregiver Provides Assist M6 OT- IP Functional Cognition Start: 09/22/23 12:49 Freq: Status: Active Protocol: Document 09/23/23 10:42 [facility] (Rec: 09/23/23 13:20 [facility] [id number]) Cognitive Factors Limiting Selfcare Function Cognitive Comments Cognitive Assessment Comments Intact M7 OT- IP Mobility and Balance Start: 09/22/23 12:49 Freq: Status: Active Protocol: Document 09/23/23 10:42 [facility] (Rec: 09/23/23 13:20 [facility] [id number]) OT-Transfer Assessment Sit to and From Stand Sit to and from Stand Contact Guard Assistance Transfers Transfer Ability Standby Assistance Technique Transfer Destination Chair,Shower Stall Devices Transfer Assistive Devices Gait Belt,Front Wheeled Walker Comments Mobility Comments CGA to stand from lower surfaces and SBA otherwise to the FWW. Pt's able to assist pt for mobility needs. OT- Balance Assessment Sitting Balance and Reactions Static Sitting Balance Ability Good Dynamic Sitting Balance Ability Good Standing Balance and Reactions Static Standing Balance Ability Good Dynamic Standing Balance Ability Fair M8 OT- IP Objective Assessments Start: 09/22/23 12:49 Freq: Status: Active Protocol: Document 09/22/23 09:05 [facility] (Rec: 09/22/23 13:13 [facility] [id number]) OT Gross Range of Motion Upper Extremity Range of Motion Assessment Left Impaired M9 OT- IP Assessment and Plan Start: 09/22/23 12:49 Freq: Status: Active Protocol: Document 09/23/23 10:42 [facility] (Rec: 09/23/23 13:20 [facility] [id number]) OT Summary Assessment and Plan Potential Rehabilitation Potential Good Analytic Complexity at Evaluation Low Summary OT Impairments Pain,Strength,Balance, Functional Mobility,Dressing, Toileting,Bathing,Toilet Transfers,Shower Transfers Progress Towards Goals Progressing Toward Goals Assessment Summary Able to do caregiver training with her for ADL and mobility needs. Pt to go home today with 24/ available assist. Pt states to just sponge bath for now and wait until her daughter come to help out on Thursday. Goals Self-Feeding Goal Independent Grooming Goal Independent Dressing Goal Minimal Assistance,Medical Record Assistant Toileting Goal Independent Bathing Goal Standby Assistance Toilet Transfer Goal Independent Shower Transfer Goal Standby Assistance Days to Meet Goals 5 Frequency of Treatment Frequency Of Treatment Once a Day Treatment Plan OT Treatment Plan ADL Training,Functional Mobility,Patient/Family Education,Discharge Planning Discharge Recommendations OT Discharge Recommendations Home with 24/7 Assist Available Home Equipment Needs Shower chair, HHPS Transportation Needs at Discharge Private Vehicle
--- NOTE | 2023-09-23 14:32 | PC.NURSE ---
Day shift: paperwork signed and all questions answered. Dressing reinforced prior to d/c. [facility] ok. Pt has all personal belongings. New MD script sent to Pt's pharmacy electronic. They are catching the 1700 ferry back to [place] today. Taken to car via WC at approx 1410 by LUIS Bazan.
--- NOTE | 2023-09-23 14:51 | CM.DPNOTE ---
DC Note Discharge home w/spouse and family to assist throughout recovery. Transport via spouse and ferry back to [place]. No needs identified from this CM team. JONATHAN
== END 2023-09-23 14:35 | disposition home or self-care (01) | DRG 455 ==
PROVIDERS: Admitting Provider Orthopaedic Surgery Orthopaedic Surgery of the Spine; PCP Family Medicine; Referring Provider Orthopaedic Surgery Orthopaedic Surgery of the Spine; Visit Provider Orthopaedic Surgery Orthopaedic Surgery of the Spine
PROC: 0SG10AJ Fusion of 2 or more Lumbar Vertebral Joints with Interbody Fusion Device, Posterior Approach, Anterior Column, Open Approach (ICD-10-PCS; principal; 2023-09-21 11:45)
DX: M48.061 Spinal stenosis, lumbar region without neurogenic claudication (principal); M43.16 Spondylolisthesis, lumbar region; I10 Essential (primary) hypertension; E03.9 Hypothyroidism, unspecified
CPT/HCPCS: 36415; 72100; 76000; 85014; 85018; 97116; 97161; 97165; 97530; 97535; A9270; C1713; C9290; J0171; J0690; J1100; J1170; J1200; J2405; J2704; J3010

== ENCOUNTER → 2024-01-21 09:10 | Outpatient (CLI) | payer MEDICARE, SELFPAY ==
[2023-09-21 16:08] VITALS: BMI 23.6
--- NOTE | 2024-01-21 | DI.RAD.S_ITS ---
PROCEDURE: XR DEXA AXIAL SKELETON INDICATIONS: Other specified disorders of bone density and structure, mul COMPARISON: [facility], , DEXA COMPLETE, 01/14/2022, 10:55. FINDINGS: Left Hip: Bone mineral density 0.658 g/cm2, T score -2.3, compared to -1.6. Left Femoral Neck: Bone mineral density 0.566 g/cm2, T score -2.6, compared to -2.3. Right Hip: Bone mineral density 0.690 g/cm2, T score -2.1, compared to -1.4. Right Femoral Neck: Bone mineral density 0.611 g/cm2, T score -2.1, compared to -2.1. Left Forearm: Bone mineral density 0.518 g/cm2, T score -2.9. Fracture Risk Calculation (when applicable): 10-year fracture risk of a major osteoporotic fracture 35% and of a hip fracture 24%. (T score greater or equal to -1.0 to: NORMAL) (T score from -1.1 to -2.4: OSTEOPENIA) (T score less than or equal to -2.5: OSTEOPOROSIS) IMPRESSION: Overall, progressive bone mineral density loss now osteoporosis in the left femoral neck. Follow-up guidelines as follows: Osteoporosis: Consider a repeat DEXA and Vertebral Fracture Assessment (VFA) exam in 2 years or sooner if medically necessary, to reassess this patient's status. Osteopenia: Consider a repeat DEXA in 2-3 years to reassess this patient's status, or if there is a new clinical indication. Normal: Consider a repeat DEXA in 5 years or sooner, or if there is a new clinical indication. All treatment decisions require clinical judgment and consideration of individual patient factors, including patient preferences, comorbidities, previous drug use, risk factors not captured in the FRAX model (e.g., frailty, falls, vitamin D deficiency, increased bone turnover, interval significant decline in bone density ) and possible under- or over-estimation of fracture risk by FRAX. In addition, the [employer]F Guide recommends that FDA-approved medical therapies be considered in postmenopausal women and men age >= 50 years with a: * Hip or vertebral (clinical or morphometric) fracture * T-score of <=-2.5 at the spine or hip * Ten-year fracture probability by FRAX of >= 3% for hip fracture or >=20% for major osteoporotic fracture. People with diagnosed cases of osteoporosis or at high risk for fracture should have regular bone mineral density tests. For patients eligible for Medicare, routine testing is allowed once every 2 years. The testing frequency can be increased to one year for patients who have rapidly progressing disease, those who are receiving or discontinuing medical therapy to restore bone mass, or have additional risk factors. Dictated by: Kerri Farris M.D. on 01/21/2024 at 16:41 Approved by: Kerri Farris M.D. on 01/21/2024 at 16:44
== END ==
PROVIDERS: PCP Family Medicine; Referring Provider Family Medicine; Visit Provider Family Medicine
DX: M81.0 Age-related osteoporosis without current pathological fracture (principal); Z13.820 Encounter for screening for osteoporosis; S42.92XP Fracture of left shoulder girdle, part unspecified, subsequent encounter for fracture with malunion
CPT/HCPCS: 77080; 77081